=== PATIENT | female | born 1955 | race Caucasian/White ===

== ENCOUNTER 2016-06-09 17:17 | Inpatient (IN) | payer MEDICARE, MEDICAID ==
--- NOTE | 2016-06-09 17:18 | ED Physician Chart ---
Chief Complaint/HPI - Patient Information Date Seen:: 06/09/16 Time Seen:: 17:18 History of Present Illness:: 60-year-old female history of cirrhosis comes in with acute, constant, moderate to severe, aching, nonradiating, 8 out of 10, generalized abdominal pain that started about 45 minutes prior to arrival. Patient has associated nausea but no vomiting. Allergies:: Allergies Allergy/AdvReac Type Severity Reaction Status Date / Time MDX PCN (penicillin) Allergy Unknown Verified 08/08/12 18:12 [PCN (penicillin)] Historian:: Patient, EMS Review:: Nurse's Note Reviewed, EMS run form Reviewed Review of Systems - Review of Systems Other: Complete system review otherwise unremarkable except as noted in HPI. Past Medical History - Past Medical History Past Medical History: HTN, Other (cirrhosis, history of hepatitis C) Family History: None Social History: Non Smoker, No Alcohol, No Drug Use, Care Facility Surgical History: None Psychiatricy History: None Medication: Reviewed Family Medical History - Family Member Mother History Unknown: Yes Physical Exam - Physical Examination Other:: INITIAL VITAL SIGNS: Reviewed by me GENERAL: Alert and interactive. Appears to be in some pain. HEAD: Head is normocephalic and atraumatic EYES: EOMI. . No scleral icterus. No conjunctival injection ENT: Moist mucous membranes. NECK: Supple. No masses. Full range of motion RESPIRATORY: No tachypnea. Clear breath sounds bilaterally. No wheezing, rales, or rhonchi CV: Regular rate and rhythm. No murmurs, rubs, or gallops ABDOMEN: Distended, firm, tender to palpation. No guarding. No rebound. No masses. EXTREMITIES: No deformity. No cyanosis. No edema. SKIN: Warm and dry. No obvious rashes. NEUROLOGIC: Alert and oriented. Face is symmetric. Speech is normal. Moves all extremities equally. Motor and sensory distally intact. Labs/Radiology/EKG Results - Lab Results Results: Lab Results 06/09/16 06/09/16 06/09/16 Range/Units 17:33 17:33 17:33 WBC 21.6 H* D (4.8-10.8) Th/cmm RBC 3.91 (3.80-5.10) Mil/cmm Hgb 10.1 L D (11.7-15.5) gm/dL Hct 31.1 L D (35.0-45.0) % MCV 79.5 L (81-100) fl MCH 25.8 L (27.0-31.0) pg MCHC Differential 32.4 (28.0-36.0) pg RDW 14.6 (11.5-20.0) % Plt Count 450 H D (150-400) Th/cmm MPV 8.2 fl Band Neutrophils % 5 (0-10) % Neutrophils (Manual) 67 (40-80) % Lymphocytes 22 (20-50) % Monocytes 5 (2-10) % Basophils 1 (0-3) % Hypochromia 1+ Platelet Estimate INCREASED PLATELETS (NORMAL) Platelet Morphology NORMAL (NORMAL) Microcytosis 1+ RBC Morph Micro Appear ABNORMAL (NORMAL) Sodium 133 L (136-145) mEq/L Potassium 4.9 (3.5-5.1) mEq/L Chloride 102 (98-107) mEq/L Carbon Dioxide 21.5 (21.0-31.0) mEq/L Anion Gap 14.4 (7.0-16.0) BUN 38 H (7-25) mg/dL Creatinine 1.4 H (0.6-1.2) mg/dL Est GFR ( Amer) 49.5 (>90) ml/min Est GFR (Non-Af Amer) 40.9 ml/min BUN/Creatinine Ratio 27.1 Glucose 98 (70-105) mg/dL Whole Bld Lactic Acid (0.60-2.00) mmol/L Calcium 10.4 H (8.6-10.3) mg/dL Total Bilirubin 0.5 (0.3-1.0) mg/dL AST 41 H (13-39) U/L ALT 32 (7-52) U/L Alkaline Phosphatase 137 H (34-104) U/L Ammonia 50 (16-53) umol/L Total Protein 8.0 (6.0-8.3) gm/dL Albumin 4.2 (3.7-5.3) gm/dL Globulin 3.8 gm/dL Albumin/Globulin Ratio 1.1 (1.0-1.8) Amylase 101 (29-103) U/L Lipase 100 H (11-82) U/L 06/09/16 Range/Units 17:33 WBC (4.8-10.8) Th/cmm RBC (3.80-5.10) Mil/cmm Hgb (11.7-15.5) gm/dL Hct (35.0-45.0) % MCV (81-100) fl MCH (27.0-31.0) pg MCHC Differential (28.0-36.0) pg RDW (11.5-20.0) % Plt Count (150-400) Th/cmm MPV fl Band Neutrophils % (0-10) % Neutrophils (Manual) (40-80) % Lymphocytes (20-50) % Monocytes (2-10) % Basophils (0-3) % Hypochromia Platelet Estimate (NORMAL) Platelet Morphology (NORMAL) Microcytosis RBC Morph Micro Appear (NORMAL) Sodium (136-145) mEq/L Potassium (3.5-5.1) mEq/L Chloride (98-107) mEq/L Carbon Dioxide (21.0-31.0) mEq/L Anion Gap (7.0-16.0) BUN (7-25) mg/dL Creatinine (0.6-1.2) mg/dL Est GFR ( Amer) (>90) ml/min Est GFR (Non-Af Amer) ml/min BUN/Creatinine Ratio Glucose (70-105) mg/dL Whole Bld Lactic Acid 1.64 (0.60-2.00) mmol/L Calcium (8.6-10.3) mg/dL Total Bilirubin (0.3-1.0) mg/dL AST (13-39) U/L ALT (7-52) U/L Alkaline Phosphatase (34-104) U/L Ammonia (16-53) umol/L Total Protein (6.0-8.3) gm/dL Albumin (3.7-5.3) gm/dL Globulin gm/dL Albumin/Globulin Ratio (1.0-1.8) Amylase (29-103) U/L Lipase (11-82) U/L ED Septic Shock - . Is Septic Shock (SBP<90, OR Lactate>4 mmol\L) present?: No Reassessment (Disposition) - Reassessment Reassessment:: Patient has obstipation. She has underlying cirrhosis and typically uses lactulose daily however has not been taking her lactulose. CT confirms large amounts of stool in the abdomen. Most likely this is the source of her pain. She also has has leukocytosis. Discussed the case in detail with Dr. Castano who is her primary care physician he will also admit the patient for further workup and treatment under his service. Reassessment Condition:: Improved - Diagnosis Diagnosis:: Severe obstipation Abdominal pain Cirrhosis Anemia, microcytic Acute kidney injury - Patient Disposition Discharge/Transfer:: Acute Care w/in this hosp Admitted to:: Med/Surg Admitting Medical Physician:: Venkata Castano Time:: 19:20 Condition at Disposition:: Stable
[2016-06-09] MEDS ORDERED: Sodium Chloride 0.9% 1,000 ML IV ONE (17:23)
[2016-06-09] MEDS ORDERED: Morphine Sulfate 4 mg/mL 1mL Syr IVP ONE (17:23)
[2016-06-09] MEDS ORDERED: Prochlorperazine 5 mg/mL 2mL Vial IVP STA (17:33)
[2016-06-09 17:38] VITALS: BP 139/75
[2016-06-09] MEDS ORDERED: Morphine Sulfate 4 mg/mL 1mL Syr ONE (17:38)
[2016-06-09] MEDS ORDERED: Prochlorperazine 5 mg/mL 2mL Vial ONE (17:39)
[2016-06-09 18:07] LABS: MEAN CELL VOLUME 79.5 fl (81-100); MEAN CORPUSCULAR HEMOGLOBIN 25.8 pg (27.0-31.0); MEAN CORPUSCULAR HGB CONC 32.4 pg (28.0-36.0); MEAN PLATELET VOLUME 8.2 fl; RED BLOOD COUNT 3.91 Mil/cmm (3.80-5.10); RED CELL DISTRIBUTION WIDTH 14.6 % (11.5-20.0)
[2016-06-09 18:18] LABS: HEMATOCRIT 31.1 % (35.0-45.0); HEMOGLOBIN 10.1 gm/dL (11.7-15.5); PLATELET COUNT 450 Th/cmm (150-400); WHITE BLOOD COUNT 21.6 Th/cmm (4.8-10.8)
[2016-06-09 18:21] LABS: ALB/GLOB RATIO 1.1 (1.0-1.8); ANION GAP 14.4 (7.0-16.0); BILIRUBIN,TOTAL 0.5 mg/dL (0.3-1.0); BUN/CREATININE RATIO 27.1; CALCIUM SERUM 10.4 mg/dL (8.6-10.3); CARBON DIOXIDE 21.5 mEq/L (21.0-31.0); CREATININE - SERUM 1.4 mg/dL (0.6-1.2); POTASSIUM SERUM 4.9 mEq/L (3.5-5.1)
[2016-06-09] MEDS ORDERED: Ciprofloxacin 400mg Premix PB 400 MG/200 ML BAG IV ONE ×2 (18:23→19:19)
[2016-06-09] MEDS ORDERED: metroNIDAZOLE 500mg/NS 100mL 500 MG/100 ML BAG IV ONE ×2 (18:25→19:19)
[2016-06-09 18:43] LABS: BAND NEUTROPHILE 5 % (0-10); BASOPHIL 1 % (0-3); HYPOCHROMIA 1+; MICROCYTOSIS 1+; NEUTROPHILS 67 % (40-80); PLATELET ESTIMATE INCREASED PLATELETS (NORMAL); PLATELET MORPHOLOGY NORMAL (NORMAL); TOTAL CELLS COUNTED 100
[2016-06-09] MEDS: Hydrocodone/APAP 5mg/325mg Tab PO PRN (22:40)
[2016-06-10] MEDS ORDERED: Pneumococcal Vaccine 0.5 mL Vial IM ONE (01:52)
[2016-06-10] MEDS: metroNIDAZOLE 500mg/NS 100mL 500 MG/100 ML BAG IV SCH ×3 (04:11→21:21)
[2016-06-10] MEDS ORDERED: Non-Formulary Item 1 EA (Linaclotide [Linzess] 145 MCG) PO SCH (09:00)
[2016-06-10] MEDS ORDERED: Non-Formulary Item 1 EA (L.Acidoph,Paracasei, B.Lactis [Probiotic] 1 EACH) PO SCH (09:00)
[2016-06-10] MEDS ORDERED: Magnesium Citrate 1.75 GM/300 mL Bottle PO ONE (09:06)
[2016-06-10] MEDS: Pantoprazole 40 mg EC Tab PO SCH (09:55)
[2016-06-10] MEDS: Lactulose 10 Gm/15 mL 30mL UDC PO SCH ×2 (09:55→12:54)
[2016-06-10] MEDS: Multivitamin Tab PO SCH (09:55)
[2016-06-10] MEDS: Levofloxacin 500mg/100mL 500 MG/100 ML BAG IV SCH (10:42)
--- NOTE | 2016-06-10 10:45 | Diagnostic Imaging Report ---
History: Chest pain. Dyspnea. Comparison: 08/09/2012 Findings: Heart size is enlarged. Aorta is tortuous. There are no infiltrates or effusions. There are internal stabilization rods in the lumbar spine. Impression: No acute disease compared to old exam.
--- NOTE | 2016-06-10 14:23 | History & Physical ---
CHIEF COMPLAINT: Abdominal pain with serious constipation. HISTORY OF PRESENT ILLNESS: The patient is a 60-year-old female brought to Emergency Room and being admitted to the hospital with severe constipation associated with abdominal pain. PAST MEDICAL HISTORY: Significant for hypertension, coronary artery disease, cirrhosis of liver, history of hepatitis C, ____, arthritis, osteoporosis, irritable bowel syndrome. SOCIAL HISTORY: No history of smoking or alcohol abuse. FAMILY HISTORY: Not available. REVIEW OF SYSTEMS: The patient denies any diarrhea. The patient has severe constipation, some amount of abdominal pain, no nausea, no vomiting, no melena or hematochezia. PHYSICAL EXAMINATION: GENERAL: ____ female in obvious respiratory distress. VITAL SIGNS: Include a blood pressure ____/80, heart rate 80, respiration rate of 18. SKIN: Shows no cellulitis. HEENT: Normal conjunctivae. NECK: Supple. LUNGS: Clear. CARDIOVASCULAR: Heart sounds are present. ABDOMEN: Generalized tenderness, no guarding, no rigidity. Bowel sounds are good. EXTREMITIES: Show arthritis. NEUROLOGIC: The patient is awake. No focal motor deficit. LABORATORY DATA: Include sodium 133, potassium 4.9, chloride 102, bicarbonate 21.5, BUN 38, creatinine of 1.4, glucose of 98, ALT 41, AST of 32, lipase of 100. In view of the exam, the patient admitted with diagnosis of severe constipation, irritable bowel syndrome, hypertension, coronary artery disease, chronic kidney disease, cirrhosis of liver, hepatitis C, ____, arthritis, and anemia. TREATMENT AND PLAN: The patient admitted to Med/Surg. This patient is on [place], Lotensin, Lasix, lactulose, started Levaquin and Flagyl. ID consult, Dr. Sujit Castano. GI consult, Dr. Silva. JOB# [id number]
[2016-06-10] MEDS ORDERED: VTE Chemical Prophylaxis Screen/Admission MC PRN (15:00)
--- NOTE | 2016-06-10 16:24 | Infectious Disease Prog Note ---
Infectious Disease Subjective - Review of Systems Service Date: 06/10/16 Events since last encounter: cc diverticulituis hpi- pt urine and ct results pending ros no fever o/e vss chest claer abd tender ext paraparesis dx uti diverticulitis plan levaquin flagyl lactulose Infectious Disease Objective - Results Result Diagrams: 06/09/16 17:33 06/09/16 17:33 Recent Labs: Laboratory Last Values WBC 21.6 Th/cmm (4.8-10.8) H* D 06/09/16 17:33 RBC 3.91 Mil/cmm (3.80-5.10) 06/09/16 17:33 Hgb 10.1 gm/dL (11.7-15.5) L D 06/09/16 17: Hct 31.1 % (35.0-45.0) L D 06/09/16 17:33 MCV 79.5 fl (81-100) L 06/09/16 17:33 MCH 25.8 pg (27.0-31.0) L 06/09/16 17:33 MCHC Differential 32.4 pg (28.0-36.0) 06/09/16 17:33 RDW 14.6 % (11.5-20.0) 06/09/16 17:33 Plt Count 450 Th/cmm (150-400) H D 06/09/16 17:33 MPV 8.2 fl 06/09/16 17:33 Band Neutrophils % 5 % (0-10) 06/09/16 17:33 Neutrophils (Manual) 67 % (40-80) 06/09/16 17:33 Lymphocytes 22 % (20-50) 06/09/16 17:33 Monocytes 5 % (2-10) 06/09/16 17:33 Basophils 1 % (0-3) 06/09/16 17:33 Hypochromia 1+ 06/09/16 17:33 Platelet Estimate INCREASED PLATELETS (NORMAL) 06/09/16 17:33 Platelet Morphology NORMAL (NORMAL) 06/09/16 17:33 Microcytosis 1+ 06/09/16 17:33 RBC Morph Micro Appear ABNORMAL (NORMAL) 06/09/16 17:33 Sodium 133 mEq/L (136-145) L 06/09/16 17:33 Potassium 4.9 mEq/L (3.5-5.1) 06/09/16 17:33 Chloride 102 mEq/L (98-107) 06/09/16 17:33 Carbon Dioxide 21.5 mEq/L (21.0-31.0) 06/09/16 17:33 Anion Gap 14.4 (7.0-16.0) 06/09/16 17:33 BUN 38 mg/dL (7-25) H 06/09/16 17:33 Creatinine 1.4 mg/dL (0.6-1.2) H 06/09/16 17:33 Est GFR ( Amer) 49.5 ml/min (>90) 06/09/16 17:33 Est GFR (Non-Af Amer) 40.9 ml/min 06/09/16 17:33 BUN/Creatinine Ratio 27.1 06/09/16 17:33 Glucose 98 mg/dL (70-105) 06/09/16 17:33 Whole Bld Lactic Acid 1.64 mmol/L (0.60-2.00) 06/09/16 17:33 Calcium 10.4 mg/dL (8.6-10.3) H 06/09/16 17:33 Total Bilirubin 0.5 mg/dL (0.3-1.0) 06/09/16 17:33 AST 41 U/L (13-39) H 06/09/16 17:33 ALT 32 U/L (7-52) 06/09/16 17:33 Alkaline Phosphatase 137 U/L (34-104) H 06/09/16 17:33 Ammonia 50 umol/L (16-53) 06/09/16 17:33 Total Protein 8.0 gm/dL (6.0-8.3) 06/09/16 17:33 Albumin 4.2 gm/dL (3.7-5.3) 06/09/16 17:33 Globulin 3.8 gm/dL 06/09/16 17:33 Albumin/Globulin Ratio 1.1 (1.0-1.8) 06/09/16 17:33 Amylase 101 U/L (29-103) 06/09/16 17:33 Lipase 100 U/L (11-82) H 06/09/16 17:33 - Physical Exam Vitals and I&O: Vital Signs Temp 98.7 F 06/10/16 16:00 Pulse 78 06/10/16 16:00 Resp 17 06/10/16 16:00 BP 119/54 06/10/16 16:00 Pulse Ox 96 06/10/16 16:00 Intake & Output 06/09/16 06/10/16 06/10/16 18:59 06:59 18:59 Intake Total 100 Balance 100 Intake: Intake, IV Amount 100 metroNIDAZOLE 500mg/NS 100 100mL 500 mg In 100 ml @ 100 mls/hr IV Q8HR PENDING SALE TO [facility] Rx #:[id number] Other: # Voids 2 Active Medications: Current Medications Acetaminophen/Hydrocodone Bitart ([place] 5mg/325mg) 1 tab PO Q4H PRN PRN Reason: Pain (Moderate) Stop: 08/08/16 22:26 Last Admin: 06/09/16 22:40 Dose: 1 tab Benazepril HCl (Lotensin) 10 mg PO DAILY PENDING SALE TO [facility] Stop: 08/09/16 08:59 Last Admin: 06/10/16 09:59 Dose: 10 mg Furosemide (Lasix) 20 mg PO DAILY PENDING SALE TO [facility] Stop: 08/09/16 08:59 Last Admin: 06/10/16 10:00 Dose: 20 mg Heparin Sodium (Porcine) (Heparin) 5,000 units SUBQ Q12HR PENDING SALE TO [facility] Stop: 08/09/16 08:59 Last Admin: 06/10/16 09:55 Dose: 5,000 units Heparin Sodium (Porcine) (Heparin) 5,000 units SUBQ Q12HR PENDING SALE TO [facility] Stop: 08/09/16 20:59 Levofloxacin (Levaquin Pb) 500 mg in 100 mls @ 100 mls/hr IV Q24HR PENDING SALE TO [facility] Stop: 08/09/16 08:59 Last Admin: 06/10/16 10:42 Dose: 100 mls/hr Metronidazole (Flagyl) 500 mg in 100 mls @ 100 mls/hr IV Q8HR PENDING SALE TO [facility] Stop: 08/09/16 04:59 Last Admin: 06/10/16 13:39 Dose: 100 mls/hr Lactulose (Cephulac) 20 gm PO DAILY PENDING SALE TO [facility] Stop: 08/09/16 08:59 Last Admin: 06/10/16 12:54 Dose: 20 gm Mineral Oil (Mineral Oil 30 Ml) 30 ml PO DAILY PRN PRN Reason: Constipation Stop: 08/09/16 09:07 Miscellaneous (Vte Chemical Prophylaxis Screen/ Admission) 1 ea [facility] PRN PRN PRN Reason: PROTOCOL Stop: 08/09/16 14:59 Multivitamins/Vitamin C (Theragran) 1 tab PO DAILY BEST Stop: 08/09/16 08:59 Last Admin: 06/10/16 09:55 Dose: 1 tab Ondansetron HCl (Zofran) 4 mg IV Q6H PRN PRN Reason: Nausea / Vomiting Stop: 08/08/16 22:28 Last Admin: 06/10/16 15:30 Dose: 4 mg Pantoprazole Sodium (Protonix) 40 mg PO DAILY BEST Stop: 08/09/16 08:59 Last Admin: 06/10/16 09:55 Dose: 40 mg General: no acute distress HEENT: atraumatic Neck: supple Cardiovascular: S1S2 Lungs: clear to auscultation bilaterally Abdomen: tender Skin: rash Infectious Disease Assmt/Plan - Problem List Patient Problems: All Active Problems LOWER ABDOMINAL PAIN AFTER STRAINING (Acute)
[2016-06-10] MEDS: Hydrocodone/APAP 5mg/325mg Tab PO PRN (17:36)
--- NOTE | 2016-06-10 18:43 | Admit Criteria Form ---
Admit Criteria Forms - Admit Criteria Diagnosis: ABDOMINAL PAIN Clinical Indications for Admission to Inpatient Care (Place 'X' for any and all applicable criteria): Admission is indicated for ANY ONE of the following(1)(2)(3)(4)(5): [X ]I. Inpatient admission required rather than observation care (Also use Abdominal Pain: Observation Care, as appropriate) because of ANY ONE of the following: [ ]a) Severe pain requiring acute inpatient management [ ]b) Identification of etiology/finding that requires inpatient care (eg, aortic dissection, free air) [ ]c) Absent bowel sounds with complete ileus(6) [ ]d) Suspected toxic megacolon [ ]e) Severe electrolyte abnormalities requiring inpatient care [ ]f) High fever or infection requiring inpatient admission as indicated by ANY ONE of following(7)(8): [ ] i) Appropriate outpatient or observational care antimicrobial treatment unavailable, not effective, or not feasible [ ] ii) Documented bacteremia [ ] iii) Temperature > 104.9 degrees F (oral) [ ] iv) T >103.1 F (oral) or < 96.8 F(rectal) that does not respond to all emergency treatment measures [ ]g) Signs of intestinal obstruction [B] [ ]h) Hemodynamic instability [ ]i) IV fluid to replace significant ongoing losses (greater than 3 L/m2 per day) (12)(13) [ ]j) Percutaneous or open drainage (eg, abscess, biliary tract ) procedures [ ]k) Parenteral nutrition regimen that must be implemented on inpatient basis [X ]l) Other condition,treatment or monitoring requiring inpatient admission. [ ]II. Peritoneal signs present [ ]III. Surgery needed that cannot be performed on an ambulatory basis. [ ]IV. Evaluation requires patient to not eat or drink for extended period ( eg, more than 24 hours). [ ]V. Contraindications and/or Inappropriate clinical situations for Observational Care in patients with abdominal pain, when ANY ONE of the following is required: [ ]a) Thorough evaluation is required to prevent catastrophic events due to delays in diagnosing (e.g.Mesenteric ischemia) 1,3 [ ]b) Patient with severe pathology or with chronic symptoms unlikely to improve in the ED stay (3) [ ]. General contraindications and/or Inappropriate clinical situations for Observational Care in patients with abdominal pain, when ANY ONE of the following is required: [ ]a) Prediction of prolongation of LOS based on ANY ONE of the following may be considered as a contraindication for observational care 2, 3, 4, 5, 6, 7, 8, 9, 10, 11 [ ]i) Age > 65 yrs. [ ]ii) Patient arriving by ambulance [ ]iii) Patient with high acuity [ ]iv) Patient requiring vital sign monitoring [ ]v) Patient on IV medication [ ]b) Systolic blood pressures 180mmHg 3,12 [ ]c) Patient with altered mental status including delirium and other alteration of consciousness, (3) [ ]d) Patient whose discharge disposition will be to a prison home or rehabilitation home should not be managed in Emergency Department Observation Unit. CMS rule requires 3 days hospital stay before such placement.3,13 [ ]e) Patient with failure to thrive due to broad array of etiologies 3,16,17 [ ]f) Inability to ambulate 3,14 Extended stay beyond goal length of stay may be needed for(2)(3): [ ]a) Persistent abdominal pain with suspected intra-abdominal process [ ]b) Diagnosed condition requiring continued stay (e.g., pancreatitis, complicated diverticulitis) [ ]c) Surgery (e.g., colectomy) The original [facility] content created by [employer] has been revised. The portions of the content which have been revised are identified through the use of italic text or in bold, and [facility] [employer] has neither reviewed nor approved the modified material.All other unmodified content is copyright [facility] [employer]. Please see references footnoted in the original [facility] edition 2016 Admit Criteria Met?: Yes
--- NOTE | 2016-06-11 00:59 | Consultation ---
REASON FOR CONSULTATION: Abdominal pain, abdominal distention. HISTORY OF PRESENT ILLNESS: This consult was obtained through the request of Dr. Venkata Castano for this 60-year-old with history of cirrhosis of the liver, hypertension, obesity, presenting to the hospital because of abdominal pain. Apparently, the patient has been having problems, that has been for a [id number]-a-half. She has history of cirrhosis. She was here a couple months ago. The patient has been having problem with going to the bathroom with constipation. She had occasional blood in the stools. She had EGD and colon a year and a few months ago. REVIEW OF SYSTEMS: Denies any weight loss. No hematemesis. PAST MEDICAL HISTORY: Hypertension, obesity, hepatitis C that was treated and cirrhosis of the liver. PAST SURGICAL HISTORY: She claims she had 7 back surgeries, 2 neck surgeries, 4 carpal tunnel surgeries. She had appendectomy, hysterectomy and attempted cholecystectomy. SOCIAL HISTORY: Smokes few cigarettes a day, nonalcoholic, ex-drug abuser. FAMILY HISTORY: Noncontributory. ALLERGIES: PENICILLIN, VITAMIN E. MEDICATIONS: The patient is on [place], Lotensin, Lasix, subcu heparin, lactulose, levofloxacin, Flagyl, multivitamin, Zofran, Protonix. REVIEW OF SYSTEMS: Again, no weight loss, no hematemesis, no melena. She has constipation and she has leg swelling and leg pain. PHYSICAL EXAMINATION: GENERAL: The patient is awake, oriented to self, place, and time, in no acute distress. VITAL SIGNS: Blood pressure is 86/56, heart rate 75, respiratory rate 17, temperature is 98.0. HEAD AND NECK: Pupils reactive to light and accommodation. Extraocular muscles intact. Sclerae are anicteric. Conjunctivae not pale. Oral cavity, no lesion. NECK: Supple, no jugular venous distention, no carotid bruit or lymph node. CHEST: Good respiratory movements. LUNGS: Clear to auscultation. CARDIOVASCULAR: Regular rate and rhythm. No murmur or gallop. ABDOMEN: Obese, distended, diffusely tender. Bowel sounds present. EXTREMITIES: Lower extremities, no edema, no cellulitis. CENTRAL NERVOUS SYSTEM: No asterixis. LABORATORY DATA: Lipase was 100, AST, ALT was 41 and 32, alkaline phosphatase is 137, bilirubin 0.5, ammonia was 50. White count 21.6, H and H of 10.1 and 31.1 with platelets of 450. CT scan was done which did not show any acute changes. Some residual contrast in the colon and degenerative joint disease of the spine. IMPRESSION: A 60-year-old with abdominal pain. ASSESSMENT AND PLAN: 1.Abdominal pain, most probably constipation. So, at this time, we will give the patient a bottle magnesium citrate. We will try mineral oil on a daily basis and depending on the results, may check another KUB or might check an ultrasound, but it seems this is time it is mostly related to constipation. 2.Decompensated cirrhosis. The patient at this time seems to be stable. Her platelets does not go with cirrhosis. Her albumin also was high, so she has to be compensated. At this time, she should have alpha fetoprotein and ultrasound every 6 months. 3.History of hepatic encephalopathy. Ammonia is normal. The patient is not encephalopathic. We will monitor her clinically. Other medical problems such as leukocytosis, cellulitis, hypertension, degenerative joint disease, etc. as per Dr. Venkata Castano. Thank you, Dr. Venkata Castano for allowing me to participate in the care of this patient. If you have any further questions, please let me know. JOB# [id number]
--- NOTE | 2016-06-11 01:27 | Consultation ---
PRIMARY CARE PHYSICIAN: Dr. Hawley. HISTORY OF PRESENT ILLNESS: This is a 60-year-old female who was brought to the Emergency with complaint of constipation and abdominal pain localized to the left side without any fever. The patient was supposed to take laxatives; however, she stopped and she decided to come to the Emergency Room where the patient was evaluated, admission orders are given and discussed with Dr. Hawley. PAST MEDICAL HISTORY: Liver cirrhosis secondary to hepatitis C, spine surgery, paraparesis, recurrent cellulitis of the legs. FAMILY HISTORY: Negative. REVIEW OF SYSTEMS: A 14-point review of systems was negative except above. PHYSICAL EXAMINATION: GENERAL: The patient is a well-nourished female. VITAL SIGNS: Temperature 98, pulse 64, respirations 18, blood pressure 98/47. HEENT: Mild pallor. No icterus. Pupils are reactive. NECK: Supple. No JVD. LUNGS: Breath sounds bilateral vesicular, decreased all over. CARDIOVASCULAR: S1, S2. ABDOMEN: Soft, bowel sounds present. Generalized tenderness. LYMPH NODES: No thyroid, no cervical lymph nodes. Chest x-ray: No infiltrates. LABORATORY DATA: White count 21,000; hemoglobin is 10 g; platelets 450. CT abdomen and pelvis done, pending results. DIAGNOSES: Diverticulitis, constipation. PLAN: The patient is started on laxatives, Levaquin, Flagyl, pain control with [place]. Rest of the care as ordered in CPOE. Medical reconciliation done. Thank you, Dr. Hawley, for this consultation. JOB# [id number]
[2016-06-11] MEDS: Hydrocodone/APAP 5mg/325mg Tab PO PRN ×3 (02:59→22:26)
[2016-06-11] MEDS: metroNIDAZOLE 500mg/NS 100mL 500 MG/100 ML BAG IV SCH ×3 (04:20→20:27)
[2016-06-11 07:43] LABS: ALB/GLOB RATIO 1.1 (1.0-1.8); ALKALINE PHOSPHATASE 116 U/L (34-104); ANION GAP 9.3 (7.0-16.0); BILIRUBIN,TOTAL 0.5 mg/dL (0.3-1.0); BUN - UREA NITROGEN 35 mg/dL (7-25); CALCIUM SERUM 8.7 mg/dL (8.6-10.3); CARBON DIOXIDE 21.7 mEq/L (21.0-31.0); CHLORIDE 108 mEq/L (98-107); CREATININE - SERUM 0.7 mg/dL (0.6-1.2); GLUCOSE 134 mg/dL (70-105); LIPASE 29 U/L (11-82); SGOT 31 U/L (13-39); SGPT/ALT 21 U/L (7-52); SODIUM SERUM 135 mEq/L (136-145)
[2016-06-11] MEDS: Multivitamin Tab PO SCH (08:18)
[2016-06-11] MEDS: Pantoprazole 40 mg EC Tab PO SCH (08:18)
[2016-06-11] MEDS: Lactulose 10 Gm/15 mL 30mL UDC PO SCH ×2 (08:19→09:00)
[2016-06-11] MEDS: Levofloxacin 500mg/100mL 500 MG/100 ML BAG IV SCH (08:33)
[2016-06-11 09:03] LABS: HEMOGLOBIN 9.1 gm/dL (11.7-15.5); RED BLOOD COUNT 3.38 Mil/cmm (3.80-5.10); WHITE BLOOD COUNT 56.1 Th/cmm (4.8-10.8)
[2016-06-11 09:04] LABS: MEAN CELL VOLUME 80.1 fl (81-100); MEAN CORPUSCULAR HEMOGLOBIN 27.1 pg (27.0-31.0); MEAN CORPUSCULAR HGB CONC 33.8 pg (28.0-36.0); MEAN PLATELET VOLUME 8.5 fl; PLATELET COUNT 365 Th/cmm (150-400); RED CELL DISTRIBUTION WIDTH 15.3 % (11.5-20.0)
[2016-06-11 11:05] LABS: TOTAL CELLS COUNTED 100
[2016-06-11 11:06] LABS: BAND NEUTROPHILE 7 % (0-10); EOSINOPHIL 0 % (0-5); NEUTROPHILS 89 % (40-80); PLATELET ESTIMATE ADEQUATE (NORMAL); PLATELET MORPHOLOGY NORMAL (NORMAL)
[2016-06-11 11:07] LABS: ANISOCYTOSIS 1+; MICROCYTOSIS 1+
[2016-06-11] MEDS ORDERED: Vancomycin HCl 1.5 GM in Sodium Chloride 0.9% 500 ML IV ONE (13:00)
[2016-06-11] MEDS ORDERED: Meropenem 1 GM in Sodium Chloride 0.9% 100 ML IV SCH (13:00)
[2016-06-11] MEDS ORDERED: Meropenem 1 gm in NS 0.9% 100 ML IV SCH (15:00)
--- NOTE | 2016-06-11 16:16 | Infectious Disease Prog Note ---
Infectious Disease Subjective - Review of Systems Service Date: 06/11/16 Events since last encounter: cc diverticulitis hpi- pt on iv bax wbc increased ct result gi eval pending onc consult called ros no fever o/e vss chets abd tender ext paraplegia dx coirrhosis/ constipation plan merrem flagyl vanco mycin Infectious Disease Objective - Results Result Diagrams: 06/11/16 06:44 06/11/16 06:44 Recent Labs: Laboratory Last Values WBC 56.1 Th/cmm (4.8-10.8) H* D 06/11/16 06:44 RBC 3.38 Mil/cmm (3.80-5.10) L 06/11/16 06:44 Hgb 9.1 gm/dL (11.7-15.5) L 06/11/16 06:44 Hct 27.0 % (35.0-45.0) L D 06/11/16 06:44 MCV 80.1 fl (81-100) L 06/11/16 06:44 MCH 27.1 pg (27.0-31.0) 06/11/16 06:44 MCHC Differential 33.8 pg (28.0-36.0) 06/11/16 06:44 RDW 15.3 % (11.5-20.0) 06/11/16 06:44 Plt Count 365 Th/cmm (150-400) 06/11/16 06:44 MPV 8.5 fl 06/11/16 06:44 Band Neutrophils % 7 % (0-10) 06/11/16 06:44 Neutrophils (Manual) 89 % (40-80) H 06/11/16 06:44 Lymphocytes 3 % (20-50) L 06/11/16 06:44 Monocytes 1 % (2-10) L 06/11/16 06:44 Eosinophils 0 % (0-5) 06/11/16 06:44 Basophils 1 % (0-3) 06/09/16 17:33 Hypochromia 1+ 06/09/16 17:33 Platelet Estimate ADEQUATE (NORMAL) 06/11/16 06:44 Platelet Morphology NORMAL (NORMAL) 06/11/16 06:44 Anisocytosis 1+ 06/11/16 06:44 Microcytosis 1+ 06/11/16 06:44 RBC Morph Micro Appear NORMAL (NORMAL) 06/11/16 06:44 Smear Path Review 06/11/16 06:44 Sodium 135 mEq/L (136-145) L 06/11/16 06:44 Potassium 4.0 mEq/L (3.5-5.1) 06/11/16 06:44 Chloride 108 mEq/L (98-107) H 06/11/16 06:44 Carbon Dioxide 21.7 mEq/L (21.0-31.0) 06/11/16 06:44 Anion Gap 9.3 (7.0-16.0) 06/11/16 06:44 BUN 35 mg/dL (7-25) H 06/11/16 06:44 Creatinine 0.7 mg/dL (0.6-1.2) 06/11/16 06:44 Est GFR ( Amer) > 60.0 ml/min (>90) 06/11/16 06:44 Est GFR (Non-Af Amer) > 60.0 ml/min 06/11/16 06:44 BUN/Creatinine Ratio 50.0 06/11/16 06:44 Glucose 134 mg/dL (70-105) H 06/11/16 06:44 Whole Bld Lactic Acid 1.64 mmol/L (0.60-2.00) 06/09/16 17:33 Calcium 8.7 mg/dL (8.6-10.3) 06/11/16 06:44 Total Bilirubin 0.5 mg/dL (0.3-1.0) 06/11/16 06:44 AST 31 U/L (13-39) 06/11/16 06:44 ALT 21 U/L (7-52) 06/11/16 06:44 Alkaline Phosphatase 116 U/L (34-104) H 06/11/16 06:44 Ammonia 50 umol/L (16-53) 06/09/16 17:33 Total Protein 6.0 gm/dL (6.0-8.3) 06/11/16 06:44 Albumin 3.1 gm/dL (3.7-5.3) L 06/11/16 06:44 Globulin 2.9 gm/dL 06/11/16 06:44 Albumin/Globulin Ratio 1.1 (1.0-1.8) 01/30/17 06:44 Amylase 101 U/L (29-103) 06/09/16 17:33 Lipase 29 U/L (11-82) 06/11/16 06:44 - Physical Exam Vitals and I&O: Vital Signs Temp 98.0 F 06/11/16 15:40 Pulse 71 06/11/16 15:40 Resp 18 06/11/16 15:40 BP 121/71 06/11/16 15:40 Pulse Ox 98 06/11/16 15:40 Intake & Output 06/10/16 06/11/16 06/11/16 18:59 06:59 18:59 Intake Total 1900 500 200 Output Total 250 Balance 1650 500 200 Intake: Intake, IV Amount 200 200 200 Levofloxacin 500mg/100mL 100 100 500 mg In 100 ml @ 100 mls/hr IV Q24HR [facility] Rx#: [id number] metroNIDAZOLE 500mg/NS 100 200 100 100mL 500 mg In 100 ml @ 100 mls/hr IV Q8HR [facility] Rx #:[id number] Oral 1500 300 Other 200 Output: Emesis 250 Other: # Voids 3 3 # Bowel Movements 3 1 Active Medications: Current Medications Acetaminophen/Hydrocodone Bitart ([place] 5mg/325mg) 1 tab PO Q4H PRN PRN Reason: Pain (Moderate) Stop: 08/08/16 22:26 Last Admin: 06/11/16 16:07 Dose: 1 tab Benazepril HCl (Lotensin) 10 mg PO DAILY [facility] Stop: 08/09/16 08:59 Last Admin: 06/11/16 08:19 Dose: Not Given Furosemide (Lasix) 20 mg PO DAILY [facility] Stop: 08/09/16 08:59 Last Admin: 06/11/16 08:19 Dose: Not Given Heparin Sodium (Porcine) (Heparin) 5,000 units SUBQ Q12HR [facility] Stop: 08/09/16 08:59 Last Admin: 06/11/16 08:18 Dose: 5,000 units Heparin Sodium (Porcine) (Heparin) 5,000 units SUBQ Q12HR [facility] Stop: 08/09/16 20:59 Metronidazole (Flagyl) 500 mg in 100 mls @ 100 mls/hr IV Q8HR [facility] Stop: 08/09/16 04:59 Last Infusion: 06/11/16 13:50 Dose: Infused Vancomycin HCl 1.5 gm/ Sodium (Chloride) 500 mls @ 250 mls/hr IV Q12H [facility] Stop: 08/10/16 21:59 Meropenem 1 gm/ Sodium (Chloride) 100 mls @ 100 mls/hr IV Q8H [facility] Stop: 08/10/16 15:59 Lactulose (Cephulac) 20 gm PO DAILY [facility] Stop: 08/09/16 08:59 Last Admin: 06/11/16 08:19 Dose: 20 gm Mineral Oil (Mineral Oil 30 Ml) 30 ml PO DAILY PRN PRN Reason: Constipation Stop: 08/09/16 09:07 Miscellaneous (Vte Chemical Prophylaxis Screen/ Admission) 1 [facility] PRN PRN PRN Reason: PROTOCOL Stop: 08/09/16 14:59 Miscellaneous (Vancomycin Iv Per Pharmacy) 1 [facility] PRN [facility] Stop: 08/10/16 12:14 Multivitamins/Vitamin C (Theragran) 1 tab PO DAILY [facility] Stop: 08/09/16 08:59 Last Admin: 06/11/16 08:18 Dose: 1 tab Ondansetron HCl (Zofran) 4 mg IV Q6H PRN PRN Reason: Nausea / Vomiting Stop: 08/08/16 22:28 Last Admin: 06/11/16 08:18 Dose: 4 mg Pantoprazole Sodium (Protonix) 40 mg PO DAILY [facility] Stop: 08/09/16 08:59 Last Admin: 06/11/16 08:18 Dose: 40 mg Polyethylene Glycol (Miralax) 17 gm PO DAILY [facility] Stop: 08/11/16 08:59 Rifaximin (Xifaxan) 600 mg PO BID [facility] Stop: 08/10/16 16:59 Last Admin: 06/11/16 16:02 Dose: 600 mg Infectious Disease Assmt/Plan - Problem List Patient Problems: All Active Problems LOWER ABDOMINAL PAIN AFTER STRAINING (Acute)
--- NOTE | 2016-06-11 16:35 | Diagnostic Imaging Report ---
KUB abdominal film HISTORY: Pain There is a nonspecific gas pattern. A mildly dilated loop of large bowel noted. No free intraperitoneal air. Surgical and severe degenerative changes noted within the lumbar spine. Orthopedic hardware traverses the intertrochanteric region of the left femur. IMPRESSION: 1. Nonspecific bowel gas pattern
[2016-06-11] MEDS: Meropenem 1 gm in NS 0.9% 100 ML IV SCH (17:03)
[2016-06-11] MEDS: Vancomycin HCl 1.5 GM in Sodium Chloride 0.9% 500 ML IV SCH (23:24)
[2016-06-12] MEDS: Hydrocodone/APAP 5mg/325mg Tab PO PRN ×5 (03:04→20:25)
[2016-06-12] MEDS: Meropenem 1 gm in NS 0.9% 100 ML IV SCH ×3 (03:31→17:05)
[2016-06-12] MEDS: metroNIDAZOLE 500mg/NS 100mL 500 MG/100 ML BAG IV SCH ×3 (06:31→20:25)
[2016-06-12] MEDS: Multivitamin Tab PO SCH (09:20)
[2016-06-12] MEDS: Pantoprazole 40 mg EC Tab PO SCH (09:20)
[2016-06-12] MEDS: POLYETHYLENE GLYCOL 3350 17 GM PACK PO SCH (09:20)
[2016-06-12] MEDS: Lactulose 10 Gm/15 mL 30mL UDC PO SCH (09:35)
[2016-06-12 10:23] LABS: HEMATOCRIT 26.1 % (35.0-45.0); HEMOGLOBIN 8.6 gm/dL (11.7-15.5); MEAN CORPUSCULAR HEMOGLOBIN 26.1 pg (27.0-31.0); MEAN PLATELET VOLUME 9.1 fl; PLATELET COUNT 375 Th/cmm (150-400); RED CELL DISTRIBUTION WIDTH 15.3 % (11.5-20.0)
[2016-06-12 10:34] LABS: WHITE BLOOD COUNT 29.4 Th/cmm (4.8-10.8)
[2016-06-12] MEDS: Vancomycin HCl 1.5 GM in Sodium Chloride 0.9% 500 ML IV SCH ×2 (10:34→11:35)
[2016-06-12 11:05] LABS: BAND NEUTROPHILE 6 % (0-10); METAMYELOCYTE 2 % (0-0); NEUTROPHILS 80 % (40-80); TOTAL CELLS COUNTED 100
[2016-06-12 11:06] LABS: PLATELET ESTIMATE ADEQUATE (NORMAL); PLATELET MORPHOLOGY NORMAL (NORMAL)
--- NOTE | 2016-06-12 11:43 | Diagnostic Imaging Report ---
INDICATION: Pain Technique: Serial axial images were performed through the abdomen and pelvis and then reformatted in the coronal plane. CTDI is 12.6mGy. [id number] FINDINGS: Lung bases clear. Liver and spleen are normal in size without focal mass. No renal masses stones or hydronephrosis. No masses or enlargement of the adrenal glands or pancreas. No biliary dilatation. Gallbladder contains no stones. Mild distention of small bowel loops. Appendix is normal. Within the pelvis bladder is smooth walled without stones. No abnormal masses or fluid collections. Extensive orthopedic hardware in the lumbar spine. There is also orthopedic hardware in the left hip joint. IMPRESSION: No acute disease in the abdomen or pelvis.
[2016-06-12 12:47] LABS: URINE BILIRUBIN NEGATIVE (NEGATIVE); URINE BLOOD NEGATIVE (NEGATIVE); URINE COLOR BROWN; URINE GLUCOSE (UA) NEGATIVE (NEGATIVE); URINE KETONE NEGATIVE (NEGATIVE); URINE PROTEIN NEGATIVE (NEGATIVE); URINE UROBILINOGEN 0.2 E.U./dL (0.2 - 1.0)
[2016-06-12 12:50] LABS: URINE BACTERIA NONE SEEN /hpf (NONE SEEN); URINE EPITHELIAL CELLS FEW /lpf (FEW); URINE RBC 0-1 /hpf (0-5); URINE WBC NONE SEEN /hpf (0-5)
[2016-06-13] MEDS: Hydrocodone/APAP 5mg/325mg Tab PO PRN ×5 (00:23→22:01)
[2016-06-13] MEDS: Meropenem 1 gm in NS 0.9% 100 ML IV SCH ×3 (02:38→17:32)
[2016-06-13] MEDS: metroNIDAZOLE 500mg/NS 100mL 500 MG/100 ML BAG IV SCH ×3 (05:07→22:00)
--- NOTE | 2016-06-13 07:51 | Consultation ---
HISTORY OF PRESENT ILLNESS: The patient is a 60-year-old female with history of cirrhosis of liver, hepatitis C, hypertension, and obesity. She has had EGD and colonoscopy in the past by Dr. Silva. FAMILY HISTORY: Unremarkable. PAST MEDICAL HISTORY: Hypertension, obesity, hepatitis C that has been treated, and cirrhosis of liver. PAST SURGICAL HISTORY: Multiple surgeries including orthopedic surgeries, appendectomy, and hysterectomy. SOCIAL HISTORY: Smokes a few cigarettes a day, does not drink, ex-drug abuser. REVIEW OF SYSTEMS: No new HEENT, cardiorespiratory, GI, , skin, hematologic, lymphatic, or endocrine symptoms. She has constipation and leg swelling. PHYSICAL EXAMINATION: VITAL SIGNS: Blood pressure is 86/56, heart rate 78, respirations 18, and blood pressure 98. HEENT: Normocephalic and atraumatic. Conjunctivae pale. Sclerae are anicteric. Nose and throat not congested. NECK: Supple. No jugular venous distention. LUNGS: Scattered rhonchi. CARDIOVASCULAR: S1 and S2 normal. ABDOMEN: Soft, distended, and obese. EXTREMITIES: No cyanosis, clubbing, or edema. CENTRAL NERVOUS SYSTEM: No asterixis. LABORATORY DATA: White cell count is 29.4, hemoglobin is 8.6, and platelet count is 375,000. Sodium is 135, BUN 35, creatinine 0.7, glucose 134, and alkaline phosphatase is 116. ASSESSMENT: The patient with history of hepatitis C that was treated, cirrhosis of liver, history of arthritis, osteoporosis, coronary artery disease, hypertension, irritable bowel syndrome, and chronic pain. PLAN: We will monitor the patient with you as needed. Thank you for asking me to see the patient in consultation. JOB# [id number] PADMINI
[2016-06-13] MEDS: Multivitamin Tab PO SCH (10:08)
[2016-06-13] MEDS: Pantoprazole 40 mg EC Tab PO SCH (10:08)
[2016-06-13] MEDS: Lactulose 10 Gm/15 mL 30mL UDC PO SCH (10:08)
[2016-06-13] MEDS: POLYETHYLENE GLYCOL 3350 17 GM PACK PO SCH (10:08)
--- NOTE | 2016-06-13 12:36 | Diagnostic Imaging Report ---
Ultrasound abdomen HISTORY: Cirrhosis COMPARISON: CT abdomen and pelvis on 06/09/2016 Technique: Sonography of the abdomen was performed in multiple planes. FINDINGS: Exam is limited due to bowel gas. The liver measures 17.5 cm. The liver demonstrates normal echogenicity with slightly irregular borders. The liver margins are not well-defined, however, no obvious focal lesions identified. No evidence of gallstones. The gallbladder wall measures 3 mm. The common bile duct measures 6 mm. Assessment of the pancreas is limited due to bowel gas. The right kidney measures 12.2 cm. The left kidney measures 10.7 cm. No evidence of focal lesions or hydronephrosis. The spleen measures 9.4 cm. Assessment of the abdominal aorta was limited due to bowel gas. IMPRESSION: Limited exam due to bowel gas. Mild hepatomegaly with slight irregularity of the hepatic borders which may reflect underlying hepatocellular disease. Please correlate with clinical findings and liver function tests. No evidence of gallstones. Borderline prominent gallbladder wall, nonspecific. No evidence of hydronephrosis.
[2016-06-13 13:52] LABS: ALB/GLOB RATIO 0.9 (1.0-1.8); ALKALINE PHOSPHATASE 83 U/L (34-104); ANION GAP 7.7 (7.0-16.0); BILIRUBIN,TOTAL 0.4 mg/dL (0.3-1.0); BUN - UREA NITROGEN 13 mg/dL (7-25); CALCIUM SERUM 8.3 mg/dL (8.6-10.3); CARBON DIOXIDE 24.2 mEq/L (21.0-31.0); CHLORIDE 109 mEq/L (98-107); CREATININE - SERUM 0.5 mg/dL (0.6-1.2); GLUCOSE 100 mg/dL (70-105); POTASSIUM SERUM 3.9 mEq/L (3.5-5.1); SGOT 14 U/L (13-39); SGPT/ALT 12 U/L (7-52); SODIUM SERUM 137 mEq/L (136-145)
--- NOTE | 2016-06-13 16:12 | General Progress Note ---
Subjective - Review of Systems Service Date: 06/13/16 Events since last encounter: no new sx had us abd, noted p/e vss heent wnl c/r cap, s1,s2 nl gi/u soft bs+ shle no p/e lne nms awake a/p stable hepc tx'd leukocytosis stable and down f/u as needed Objective - Results Result Diagrams: 06/12/16 09:10 06/13/16 13:00 Recent Labs: Laboratory Last Values WBC 29.4 Th/cmm (4.8-10.8) H* D 06/12/16 09:10 RBC 3.30 Mil/cmm (3.80-5.10) L 06/12/16 09:10 Hgb 8.6 gm/dL (11.7-15.5) L 06/12/16 09:10 Hct 26.1 % (35.0-45.0) L 06/12/16 09:10 MCV 79.0 fl (81-100) L 06/12/16 09:10 MCH 26.1 pg (27.0-31.0) L 06/12/16 09:10 MCHC Differential 33.0 pg (28.0-36.0) 06/12/16 09:10 RDW 15.3 % (11.5-20.0) 06/12/16 09:10 Plt Count 375 Th/cmm (150-400) 06/12/16 09:10 MPV 9.1 fl 06/12/16 09:10 Band Neutrophils % 6 % (0-10) 06/12/16 09:10 Neutrophils (Manual) 80 % (40-80) 06/12/16 09:10 Lymphocytes 5 % (20-50) L 06/12/16 09:10 Monocytes 6 % (2-10) 06/12/16 09:10 Eosinophils 0 % (0-5) 06/11/16 06:44 Basophils 1 % (0-3) 06/09/16 17:33 Metamyelocytes 2 % (0-0) H 06/12/16 09:10 Atypical Lymphocytes 1 % 06/12/16 09:10 Hypochromia 1+ 06/09/16 17:33 Platelet Estimate ADEQUATE (NORMAL) 06/12/16 09:10 Platelet Morphology NORMAL (NORMAL) 06/12/16 09:10 Anisocytosis 1+ 06/11/16 06:44 Microcytosis 1+ 06/11/16 06:44 RBC Morph Micro Appear NORMAL (NORMAL) 06/12/16 09:10 Smear Path Review 06/11/16 06:44 Sodium 137 mEq/L (136-145) 06/13/16 13:00 Potassium 3.9 mEq/L (3.5-5.1) 06/13/16 13:00 Chloride 109 mEq/L (98-107) H 06/13/16 13:00 Carbon Dioxide 24.2 mEq/L (21.0-31.0) 06/13/16 13:00 Anion Gap 7.7 (7.0-16.0) 06/13/16 13:00 BUN 13 mg/dL (7-25) 06/13/16 13:00 Creatinine 0.5 mg/dL (0.6-1.2) L 06/13/16 13:00 Est GFR ( Amer) > 60.0 ml/min (>90) 06/13/16 13:00 Est GFR (Non-Af Amer) > 60.0 ml/min 06/13/16 13:00 BUN/Creatinine Ratio 26.0 06/13/16 13:00 Glucose 100 mg/dL (70-105) 06/13/16 13:00 POC Glucose 113 MG/DL (70 - 105) H 06/13/16 11:21 Whole Bld Lactic Acid 1.64 mmol/L (0.60-2.00) 06/09/16 17:33 Calcium 8.3 mg/dL (8.6-10.3) L 06/13/16 13:00 Total Bilirubin 0.4 mg/dL (0.3-1.0) 06/13/16 13:00 AST 14 U/L (13-39) 06/13/16 13:00 ALT 12 U/L (7-52) 06/13/16 13:00 Alkaline Phosphatase 83 U/L (34-104) 06/13/16 13:00 Ammonia 50 umol/L (16-53) 06/09/16 17:33 Total Protein 5.8 gm/dL (6.0-8.3) L 06/13/16 13:00 Albumin 2.7 gm/dL (3.7-5.3) L 06/13/16 13:00 Globulin 3.1 gm/dL 06/13/16 13:00 Albumin/Globulin Ratio 0.9 (1.0-1.8) L 06/13/16 13:00 Amylase 101 U/L (29-103) 06/09/16 17:33 Lipase 29 U/L (11-82) 06/11/16 06:44 Urine Source CLEAN C 06/12/16 11:50 Urine Color BROWN 06/12/16 11:50 Urine Clarity SL. CLOUDY (CLEAR) 06/12/16 11:50 Urine pH 6.0 06/12/16 11:50 Ur Specific [place] (1.005-1.030) 06/12/16 11:50 Urine Protein NEGATIVE mg/dL (NEGATIVE) 06/12/16 11:50 Urine Glucose (UA) NEGATIVE mg/dL (NEGATIVE) 06/12/16 11:50 Urine Ketones NEGATIVE mg/dL (NEGATIVE) 06/12/16 11:50 Urine Blood NEGATIVE (NEGATIVE) 06/12/16 11:50 Urine Nitrate NEGATIVE (NEGATIVE) 06/12/16 11:50 Urine Bilirubin NEGATIVE (NEGATIVE) 06/12/16 11:50 Urine Urobilinogen 0.2 E.U./dL (0.2 - 1.0) 06/12/16 11:50 Ur Leukocyte Esterase NEGATIVE (NEGATIVE) 06/12/16 11:50 Urine RBC 0-1 /hpf (0-5) 06/12/16 11:50 Urine WBC NONE SEEN /hpf (0-5) 06/12/16 11:50 Ur Epithelial Cells FEW /lpf (FEW) 06/12/16 11:50 Urine Bacteria NONE SEEN /hpf (NONE SEEN) 06/12/16 11:50 Vancomycin Trough 23.3 ug/mL (10-20) H 06/13/16 13:00 - Physical Exam Vitals and I&O: Vital Signs Temp 98.6 F 06/13/16 12:00 Pulse 74 06/13/16 12:00 Resp 18 06/13/16 12:00 BP 128/80 06/13/16 12:00 Pulse Ox 94 06/13/16 12:00 Intake & Output 06/12/16 06/13/16 06/13/16 18:59 06:59 18:59 Intake Total 650 300 200 Output Total 0 Balance 650 300 200 Intake: Intake, IV Amount 650 300 200 Meropenem 1 gm In Sodium 200 100 100 Chloride 0.9% 100 ml @ 100 mls/hr IV Q8H [facility] Rx# :[id number] Vancomycin HCl 1.25 gm In 250 Sodium Chloride 0.9% 250 ml @ 165 mls/hr IV Q12H [facility] Rx#:[id number] metroNIDAZOLE 500mg/NS 200 200 100 100mL 500 mg In 100 ml @ 100 mls/hr IV Q8HR [facility] Rx #:[id number] Output: Stool 0 Other: # Voids 2 Active Medications: Current Medications Acetaminophen/Hydrocodone Bitart ([place] 5mg/325mg) 1 tab PO Q4H PRN PRN Reason: Pain (Moderate) Stop: 08/08/16 22:26 Last Admin: 06/13/16 10:03 Dose: 1 tab Benazepril HCl (Lotensin) 10 mg PO DAILY [facility] Stop: 08/09/16 08:59 Last Admin: 06/13/16 10:07 Dose: Not Given Furosemide (Lasix) 20 mg PO DAILY [facility] Stop: 08/09/16 08:59 Last Admin: 06/13/16 10:07 Dose: Not Given Heparin Sodium (Porcine) (Heparin) 5,000 units SUBQ Q12HR [facility] Stop: 08/09/16 08:59 Last Admin: 06/13/16 12:32 Dose: 5,000 units Heparin Sodium (Porcine) (Heparin) 5,000 units SUBQ Q12HR [facility] Stop: 08/09/16 20:59 Last Admin: 06/11/16 20:27 Dose: 5,000 units Metronidazole (Flagyl) 500 mg in 100 mls @ 100 mls/hr IV Q8HR [facility] Stop: 08/09/16 04:59 Last Infusion: 06/13/16 15:54 Dose: Infused Meropenem 1 gm/ Sodium (Chloride) 100 mls @ 100 mls/hr IV Q8H [facility] Stop: 08/10/16 15:59 Last Infusion: 06/13/16 15:54 Dose: Infused Vancomycin HCl 1 gm/ Sodium (Chloride) 250 mls @ 165 mls/hr IV Q12H [facility] Stop: 08/12/16 19:59 Lactulose (Cephulac) 20 gm PO DAILY [facility] Stop: 08/09/16 08:59 Last Admin: 06/13/16 10:08 Dose: Not Given Mineral Oil (Mineral Oil 30 Ml) 30 ml PO DAILY PRN PRN Reason: Constipation Stop: 08/09/16 09:07 Last Admin: 06/12/16 16:29 Dose: 30 ml Miscellaneous (Vte Chemical Prophylaxis Screen/ Admission) 1 [facility] PRN PRN PRN Reason: PROTOCOL Stop: 08/09/16 14:59 Miscellaneous (Vancomycin Iv Per Pharmacy) 1 [facility] PRN [facility] Stop: 08/10/16 12:14 Multivitamins/Vitamin C (Theragran) 1 tab PO DAILY [facility] Stop: 08/09/16 08:59 Last Admin: 06/13/16 10:08 Dose: Not Given Ondansetron HCl (Zofran) 4 mg IV Q6H PRN PRN Reason: Nausea / Vomiting Stop: 08/08/16 22:28 Last Admin: 06/11/16 08:18 Dose: 4 mg Pantoprazole Sodium (Protonix) 40 mg PO DAILY [facility] Stop: 08/09/16 08:59 Last Admin: 06/13/16 10:08 Dose: Not Given Polyethylene Glycol (Miralax) 17 gm PO DAILY [facility] Stop: 08/11/16 08:59 Last Admin: 06/13/16 10:08 Dose: Not Given Rifaximin (Xifaxan) 600 mg PO BID [facility] Stop: 08/10/16 16:59 Last Admin: 06/13/16 10:09 Dose: Not Given Assessment/Plan - Problem List Patient Problems: All Active Problems LOWER ABDOMINAL PAIN AFTER STRAINING (Acute)
[2016-06-14] MEDS: Meropenem 1 gm in NS 0.9% 100 ML IV SCH ×3 (00:35→16:25)
[2016-06-14] MEDS: Hydrocodone/APAP 5mg/325mg Tab PO PRN ×4 (02:21→20:18)
[2016-06-14] MEDS: metroNIDAZOLE 500mg/NS 100mL 500 MG/100 ML BAG IV SCH ×3 (05:11→20:26)
[2016-06-14 09:36] LABS: HEMATOCRIT 27.1 % (35.0-45.0); HEMOGLOBIN 8.9 gm/dL (11.7-15.5); MEAN CELL VOLUME 78.8 fl (81-100); MEAN CORPUSCULAR HGB CONC 32.9 pg (28.0-36.0); MEAN PLATELET VOLUME 9.7 fl; PLATELET COUNT 422 Th/cmm (150-400); RED BLOOD COUNT 3.44 Mil/cmm (3.80-5.10)
[2016-06-14 09:38] LABS: WHITE BLOOD COUNT 15.1 Th/cmm (4.8-10.8)
[2016-06-14 11:04] LABS: ANISOCYTOSIS 1+; BAND NEUTROPHILE 1 % (0-10); BASOPHIL 1 % (0-3); EOSINOPHIL 1 % (0-5); MICROCYTOSIS 1+; NEUTROPHILS 65 % (40-80); TOTAL CELLS COUNTED 100
[2016-06-14 11:05] LABS: PLATELET ESTIMATE ADEQUATE (NORMAL); PLATELET MORPHOLOGY NORMAL (NORMAL)
[2016-06-14] MEDS: Lactulose 10 Gm/15 mL 30mL UDC PO SCH (11:17)
[2016-06-14] MEDS: Multivitamin Tab PO SCH (11:17)
[2016-06-14] MEDS: POLYETHYLENE GLYCOL 3350 17 GM PACK PO SCH (11:18)
[2016-06-14] MEDS: Pantoprazole 40 mg EC Tab PO SCH (11:18)
--- NOTE | 2016-06-14 13:12 | General Progress Note ---
Subjective - Review of Systems Service Date: 06/14/16 Subjective: HAVING BM'S AFTER BOWEL PREP BUT STILL SOME LUQ/LLQ PAIN. Objective - Results Result Diagrams: 06/13/16 13:00 06/13/16 13:00 Recent Labs: Laboratory Last Values WBC 15.1 Th/cmm (4.8-10.8) H D 06/13/16 13:00 RBC 3.44 Mil/cmm (3.80-5.10) L 06/13/16 13:00 Hgb 8.9 gm/dL (11.7-15.5) L 06/13/16 13:00 Hct 27.1 % (35.0-45.0) L 06/13/16 13:00 MCV 78.8 fl (81-100) L 06/13/16 13:00 MCH 26.0 pg (27.0-31.0) L 06/13/16 13:00 MCHC Differential 32.9 pg (28.0-36.0) 06/13/16 13:00 RDW 16.0 % (11.5-20.0) 06/13/16 13:00 Plt Count 422 Th/cmm (150-400) H 06/13/16 13:00 MPV 9.7 fl 06/13/16 13:00 Band Neutrophils % 1 % (0-10) 06/13/16 13:00 Neutrophils (Manual) 65 % (40-80) 06/13/16 13:00 Lymphocytes 22 % (20-50) 06/13/16 13:00 Monocytes 10 % (2-10) 06/13/16 13:00 Eosinophils 1 % (0-5) 06/13/16 13:00 Basophils 1 % (0-3) 06/13/16 13:00 Metamyelocytes 2 % (0-0) H 06/12/16 09:10 Atypical Lymphocytes 1 % 06/12/16 09:10 Hypochromia 1+ 06/09/16 17:33 Platelet Estimate ADEQUATE (NORMAL) 06/13/16 13:00 Platelet Morphology NORMAL (NORMAL) 06/13/16 13:00 Anisocytosis 1+ 06/13/16 13:00 Microcytosis 1+ 06/13/16 13:00 RBC Morph Micro Appear ABNORMAL (NORMAL) 06/13/16 13:00 Smear Path Review 06/11/16 06:44 Sodium 137 mEq/L (136-145) 06/13/16 13:00 Potassium 3.9 mEq/L (3.5-5.1) 06/13/16 13:00 Chloride 109 mEq/L (98-107) H 06/13/16 13:00 Carbon Dioxide 24.2 mEq/L (21.0-31.0) 06/13/16 13:00 Anion Gap 7.7 (7.0-16.0) 06/13/16 13:00 BUN 13 mg/dL (7-25) 06/13/16 13:00 Creatinine 0.5 mg/dL (0.6-1.2) L 06/13/16 13:00 Est GFR ( Amer) > 60.0 ml/min (>90) 06/13/16 13:00 Est GFR (Non-Af Amer) > 60.0 ml/min 06/13/16 13:00 BUN/Creatinine Ratio 26.0 06/13/16 13:00 Glucose 100 mg/dL (70-105) 06/13/16 13:00 POC Glucose 113 MG/DL (70 - 105) H 06/13/16 11:21 Whole Bld Lactic Acid 1.64 mmol/L (0.60-2.00) 06/09/16 17:33 Calcium 8.3 mg/dL (8.6-10.3) L 06/13/16 13:00 Total Bilirubin 0.4 mg/dL (0.3-1.0) 06/13/16 13:00 AST 14 U/L (13-39) 06/13/16 13:00 ALT 12 U/L (7-52) 06/13/16 13:00 Alkaline Phosphatase 83 U/L (34-104) 06/13/16 13:00 Ammonia 50 umol/L (16-53) 06/09/16 17:33 Total Protein 5.8 gm/dL (6.0-8.3) L 06/13/16 13:00 Albumin 2.7 gm/dL (3.7-5.3) L 06/13/16 13:00 Globulin 3.1 gm/dL 06/13/16 13:00 Albumin/Globulin Ratio 0.9 (1.0-1.8) L 06/13/16 13:00 Amylase 101 U/L (29-103) 06/09/16 17:33 Lipase 29 U/L (11-82) 06/11/16 06:44 Urine Source CLEAN C 06/12/16 11:50 Urine Color BROWN 06/12/16 11:50 Urine Clarity SL. CLOUDY (CLEAR) 06/12/16 11:50 Urine pH 6.0 06/12/16 11:50 Ur Specific [place] (1.005-1.030) 06/12/16 11:50 Urine Protein NEGATIVE mg/dL (NEGATIVE) 06/12/16 11:50 Urine Glucose (UA) NEGATIVE mg/dL (NEGATIVE) 06/12/16 11:50 Urine Ketones NEGATIVE mg/dL (NEGATIVE) 06/12/16 11:50 Urine Blood NEGATIVE (NEGATIVE) 06/12/16 11:50 Urine Nitrate NEGATIVE (NEGATIVE) 06/12/16 11:50 Urine Bilirubin NEGATIVE (NEGATIVE) 06/12/16 11:50 Urine Urobilinogen 0.2 E.U./dL (0.2 - 1.0) 06/12/16 11:50 Ur Leukocyte Esterase NEGATIVE (NEGATIVE) 06/12/16 11:50 Urine RBC 0-1 /hpf (0-5) 06/12/16 11:50 Urine WBC NONE SEEN /hpf (0-5) 06/12/16 11:50 Ur Epithelial Cells FEW /lpf (FEW) 06/12/16 11:50 Urine Bacteria NONE SEEN /hpf (NONE SEEN) 06/12/16 11:50 Vancomycin Trough 23.3 ug/mL (10-20) H 06/13/16 13:00 - Physical Exam Vitals and I&O: Vital Signs Temp 99.0 F 06/14/16 08:00 Pulse 80 06/14/16 11:16 Resp 17 06/14/16 08:00 BP 129/71 06/14/16 11:17 Pulse Ox 95 06/14/16 08:00 Intake & Output 06/13/16 06/14/16 06/14/16 18:59 06:59 18:59 Intake Total 200 3650 Output Total 4 Balance 200 3646 Intake: Intake, IV Amount 200 650 Meropenem 1 gm In Sodium 100 200 Chloride 0.9% 100 ml @ 100 mls/hr IV Q8H [facility] Rx# :[id number] Vancomycin HCl 1 gm In 250 Sodium Chloride 0.9% 250 ml @ 165 mls/hr IV Q12H [facility] Rx#:[id number] metroNIDAZOLE 500mg/NS 100 200 100mL 500 mg In 100 ml @ 100 mls/hr IV Q8HR [facility] Rx #:[id number] Oral 3000 Output: Urine 4 Other: # Bowel Movements 1 Active Medications: Current Medications Acetaminophen/Hydrocodone Bitart ([place] 5mg/325mg) 1 tab PO Q4H PRN PRN Reason: Pain (Moderate) Stop: 08/08/16 22:26 Last Admin: 06/14/16 11:22 Dose: 1 tab Benazepril HCl (Lotensin) 10 mg PO DAILY [facility] Stop: 08/09/16 08:59 Last Admin: 06/14/16 11:16 Dose: Not Given Bisacodyl (Dulcolax 5 Mg Ec Tab) 10 mg PO X1 ONE Stop: 06/14/16 16:01 Furosemide (Lasix) 20 mg PO DAILY [facility] Stop: 08/09/16 08:59 Last Admin: 06/14/16 11:17 Dose: Not Given Heparin Sodium (Porcine) (Heparin) 5,000 units SUBQ Q12HR [facility] Stop: 08/09/16 08:59 Last Admin: 06/14/16 10:09 Dose: 5,000 units Heparin Sodium (Porcine) (Heparin) 5,000 units SUBQ Q12HR [facility] Stop: 08/09/16 20:59 Last Admin: 06/14/16 10:02 Dose: Not Given Metronidazole (Flagyl) 500 mg in 100 mls @ 100 mls/hr IV Q8HR [facility] Stop: 08/09/16 04:59 Last Admin: 06/14/16 12:17 Dose: 100 mls/hr Meropenem 1 gm/ Sodium (Chloride) 100 mls @ 100 mls/hr IV Q8H [facility] Stop: 08/10/16 15:59 Last Admin: 06/14/16 10:07 Dose: 100 mls/hr Vancomycin HCl 1 gm/ Sodium (Chloride) 250 mls @ 165 mls/hr IV Q12H [facility] Stop: 08/12/16 19:59 Last Admin: 06/14/16 11:13 Dose: 165 mls/hr Lactulose (Cephulac) 20 gm PO DAILY [facility] Stop: 08/09/16 08:59 Last Admin: 06/14/16 11:17 Dose: Not Given Mineral Oil (Mineral Oil 30 Ml) 30 ml PO DAILY PRN PRN Reason: Constipation Stop: 08/09/16 09:07 Last Admin: 06/12/16 16:29 Dose: 30 ml Miscellaneous ([employer] Prophylaxis Screen/ Admission) 1 [facility] PRN PRN PRN Reason: PROTOCOL Stop: 08/09/16 14:59 Miscellaneous (Vancomycin Iv Per Pharmacy) 1 [facility] PRN [facility] Stop: 08/10/16 12:14 Multivitamins/Vitamin C (Theragran) 1 tab PO DAILY [facility] Stop: 08/09/16 08:59 Last Admin: 06/14/16 11:17 Dose: Not Given Ondansetron HCl (Zofran) 4 mg IV Q6H PRN PRN Reason: Nausea / Vomiting Stop: 08/08/16 22:28 Last Admin: 06/11/16 08:18 Dose: 4 mg Pantoprazole Sodium (Protonix) 40 mg PO DAILY [facility] Stop: 08/09/16 08:59 Last Admin: 06/14/16 11:18 Dose: Not Given Polyethylene Glycol (Miralax) 17 gm PO DAILY [facility] Stop: 08/11/16 08:59 Last Admin: 06/14/16 11:18 Dose: Not Given Polyethylene Glycol/Electrolytes (Golytely) 4,000 ml PO X1 ONE Stop: 06/14/16 13:10 Rifaximin (Xifaxan) 600 mg PO BID [facility] Stop: 08/10/16 16:59 Last Admin: 06/14/16 11:18 Dose: Not Given General: Alert, Oriented x3 HEENT: Atraumatic Cardiovascular: Regular rate Lungs: Clear to auscultation Abdomen: Bowel sounds, Soft, Tender (L SIDED) Psych/Mental Status: Mental status NL Assessment/Plan - Problem List Patient Problems: All Active Problems LOWER ABDOMINAL PAIN AFTER STRAINING (Acute) - Assessment Assessment: 1. L SIDED ABD PAIN - R/O CONSTIPATION VS. DIVERTICULAR DISEASE VS. COLITIS VS. UGI SOURCE. 2. ANEMIA. 3. OBESITY. - Plan Plan: 1. EGD AND COLONOSCOPY TO BE REPEATED TOMORROW. 2. CONTINUE BOWEL PREP. 3. STOOL SOFTENERS AND PROTONIX.
--- NOTE | 2016-06-14 16:49 | General Progress Note ---
Subjective - Review of Systems Service Date: 06/14/16 Subjective: s: no new sx Objective - Results Result Diagrams: 06/13/16 13:00 06/13/16 13:00 Recent Labs: Laboratory Last Values WBC 15.1 Th/cmm (4.8-10.8) H D 06/13/16 13:00 RBC 3.44 Mil/cmm (3.80-5.10) L 06/13/16 13:00 Hgb 8.9 gm/dL (11.7-15.5) L 06/13/16 13:00 Hct 27.1 % (35.0-45.0) L 06/13/16 13:00 MCV 78.8 fl (81-100) L 06/13/16 13:00 MCH 26.0 pg (27.0-31.0) L 06/13/16 13:00 MCHC Differential 32.9 pg (28.0-36.0) 06/13/16 13:00 RDW 16.0 % (11.5-20.0) 06/13/16 13:00 Plt Count 422 Th/cmm (150-400) H 06/13/16 13:00 MPV 9.7 fl 06/13/16 13:00 Band Neutrophils % 1 % (0-10) 06/13/16 13:00 Neutrophils (Manual) 65 % (40-80) 06/13/16 13:00 Lymphocytes 22 % (20-50) 06/13/16 13:00 Monocytes 10 % (2-10) 06/13/16 13:00 Eosinophils 1 % (0-5) 06/13/16 13:00 Basophils 1 % (0-3) 06/13/16 13:00 Metamyelocytes 2 % (0-0) H 06/12/16 09:10 Atypical Lymphocytes 1 % 06/12/16 09:10 Hypochromia 1+ 06/09/16 17:33 Platelet Estimate ADEQUATE (NORMAL) 06/13/16 13:00 Platelet Morphology NORMAL (NORMAL) 06/13/16 13:00 Anisocytosis 1+ 06/13/16 13:00 Microcytosis 1+ 06/13/16 13:00 RBC Morph Micro Appear ABNORMAL (NORMAL) 06/13/16 13:00 Smear Path Review 06/11/16 06:44 Sodium 137 mEq/L (136-145) 06/13/16 13:00 Potassium 3.9 mEq/L (3.5-5.1) 06/13/16 13:00 Chloride 109 mEq/L (98-107) H 06/13/16 13:00 Carbon Dioxide 24.2 mEq/L (21.0-31.0) 06/13/16 13:00 Anion Gap 7.7 (7.0-16.0) 06/13/16 13:00 BUN 13 mg/dL (7-25) 06/13/16 13:00 Creatinine 0.5 mg/dL (0.6-1.2) L 06/13/16 13:00 Est GFR ( Amer) > 60.0 ml/min (>90) 06/13/16 13:00 Est GFR (Non-Af Amer) > 60.0 ml/min 06/13/16 13:00 BUN/Creatinine Ratio 26.0 06/13/16 13:00 Glucose 100 mg/dL (70-105) 06/13/16 13:00 POC Glucose 113 MG/DL (70 - 105) H 06/13/16 11:21 Whole Bld Lactic Acid 1.64 mmol/L (0.60-2.00) 06/09/16 17:33 Calcium 8.3 mg/dL (8.6-10.3) L 06/13/16 13:00 Total Bilirubin 0.4 mg/dL (0.3-1.0) 06/13/16 13:00 AST 14 U/L (13-39) 06/13/16 13:00 ALT 12 U/L (7-52) 06/13/16 13:00 Alkaline Phosphatase 83 U/L (34-104) 06/13/16 13:00 Ammonia 50 umol/L (16-53) 06/09/16 17:33 Total Protein 5.8 gm/dL (6.0-8.3) L 06/13/16 13:00 Albumin 2.7 gm/dL (3.7-5.3) L 06/13/16 13:00 Globulin 3.1 gm/dL 06/13/16 13:00 Albumin/Globulin Ratio 0.9 (1.0-1.8) L 06/13/16 13:00 Amylase 101 U/L (29-103) 06/09/16 17:33 Lipase 29 U/L (11-82) 06/11/16 06:44 Urine Source CLEAN C 06/12/16 11:50 Urine Color BROWN 06/12/16 11:50 Urine Clarity SL. CLOUDY (CLEAR) 06/12/16 11:50 Urine pH 6.0 06/12/16 11:50 Ur Specific [place] (1.005-1.030) 06/12/16 11:50 Urine Protein NEGATIVE mg/dL (NEGATIVE) 06/12/16 11:50 Urine Glucose (UA) NEGATIVE mg/dL (NEGATIVE) 06/12/16 11:50 Urine Ketones NEGATIVE mg/dL (NEGATIVE) 06/12/16 11:50 Urine Blood NEGATIVE (NEGATIVE) 06/12/16 11:50 Urine Nitrate NEGATIVE (NEGATIVE) 06/12/16 11:50 Urine Bilirubin NEGATIVE (NEGATIVE) 06/12/16 11:50 Urine Urobilinogen 0.2 E.U./dL (0.2 - 1.0) 06/12/16 11:50 Ur Leukocyte Esterase NEGATIVE (NEGATIVE) 06/12/16 11:50 Urine RBC 0-1 /hpf (0-5) 06/12/16 11:50 Urine WBC NONE SEEN /hpf (0-5) 06/12/16 11:50 Ur Epithelial Cells FEW /lpf (FEW) 06/12/16 11:50 Urine Bacteria NONE SEEN /hpf (NONE SEEN) 06/12/16 11:50 Vancomycin Trough 23.3 ug/mL (10-20) H 06/13/16 13:00 - Physical Exam Vitals and I&O: Vital Signs Temp 98.3 F 06/14/16 16:00 Pulse 70 06/14/16 16:00 Resp 18 06/14/16 16:00 BP 122/71 06/14/16 16:00 Pulse Ox 95 06/14/16 16:00 Intake & Output 06/13/16 06/14/16 06/14/16 18:59 06:59 18:59 Intake Total 200 3650 100 Output Total 4 Balance 200 3646 100 Intake: Intake, IV Amount 200 650 100 Meropenem 1 gm In Sodium 100 200 100 Chloride 0.9% 100 ml @ 100 mls/hr IV Q8H [facility] Rx# :[id number] Vancomycin HCl 1 gm In 250 Sodium Chloride 0.9% 250 ml @ 165 mls/hr IV Q12H [facility] Rx#:[id number] metroNIDAZOLE 500mg/NS 100 200 100mL 500 mg In 100 ml @ 100 mls/hr IV Q8HR [facility] Rx #:[id number] Oral 3000 Output: Urine 4 Other: # Bowel Movements 1 Active Medications: Current Medications Acetaminophen/Hydrocodone Bitart ([place] 5mg/325mg) 1 tab PO Q4H PRN PRN Reason: Pain (Moderate) Stop: 08/08/16 22:26 Last Admin: 06/14/16 15:13 Dose: 1 tab Benazepril HCl (Lotensin) 10 mg PO DAILY [facility] Stop: 08/09/16 08:59 Last Admin: 06/14/16 11:16 Dose: Not Given Furosemide (Lasix) 20 mg PO DAILY [facility] Stop: 08/09/16 08:59 Last Admin: 06/14/16 11:17 Dose: Not Given Heparin Sodium (Porcine) (Heparin) 5,000 units SUBQ Q12HR [facility] Stop: 08/09/16 08:59 Last Admin: 06/14/16 10:09 Dose: 5,000 units Heparin Sodium (Porcine) (Heparin) 5,000 units SUBQ Q12HR [facility] Stop: 08/09/16 20:59 Last Admin: 06/14/16 10:02 Dose: Not Given Metronidazole (Flagyl) 500 mg in 100 mls @ 100 mls/hr IV Q8HR [facility] Stop: 08/09/16 04:59 Last Admin: 06/14/16 12:17 Dose: 100 mls/hr Meropenem 1 gm/ Sodium (Chloride) 100 mls @ 100 mls/hr IV Q8H [facility] Stop: 08/10/16 15:59 Last Admin: 06/14/16 16:25 Dose: 100 mls/hr Vancomycin HCl 1 gm/ Sodium (Chloride) 250 mls @ 165 mls/hr IV Q12H [facility] Stop: 08/12/16 19:59 Last Admin: 06/14/16 11:13 Dose: 165 mls/hr Lactulose (Cephulac) 20 gm PO DAILY [facility] Stop: 08/09/16 08:59 Last Admin: 06/14/16 11:17 Dose: Not Given Mineral Oil (Mineral Oil 30 Ml) 30 ml PO DAILY PRN PRN Reason: Constipation Stop: 08/09/16 09:07 Last Admin: 06/12/16 16:29 Dose: 30 ml Miscellaneous (Vte Chemical Prophylaxis Screen/ Admission) 1 ea PRN PRN PRN Reason: PROTOCOL Stop: 08/09/16 14:59 Miscellaneous (Vancomycin Iv Per Pharmacy) 1 ea PRN [facility] Stop: 08/10/16 12:14 Multivitamins/Vitamin C (Theragran) 1 tab PO DAILY [facility] Stop: 08/09/16 08:59 Last Admin: 06/14/16 11:17 Dose: Not Given Ondansetron HCl (Zofran) 4 mg IV Q6H PRN PRN Reason: Nausea / Vomiting Stop: 08/08/16 22:28 Last Admin: 06/11/16 08:18 Dose: 4 mg Pantoprazole Sodium (Protonix) 40 mg PO DAILY [facility] Stop: 08/09/16 08:59 Last Admin: 06/14/16 11:18 Dose: Not Given Polyethylene Glycol (Miralax) 17 gm PO DAILY [facility] Stop: 08/11/16 08:59 Last Admin: 06/14/16 11:18 Dose: Not Given Rifaximin (Xifaxan) 600 mg PO BID [facility] Stop: 08/10/16 16:59 Last Admin: 06/14/16 16:25 Dose: 600 mg General: Alert, Oriented x3, Cooperative, No acute distress HEENT: Atraumatic, PERRLA, EOMI Neck: Supple, JVD Cardiovascular: Regular rate, Normal S1, Normal S2 Lungs: Clear to auscultation Abdomen: Bowel sounds, Soft, Tender Extremities: Clubbing, Cyanosis, Edema Neurological: Normal gait, Normal speech Psych/Mental Status: Mental status NL Assessment/Plan - Problem List Patient Problems: All Active Problems LOWER ABDOMINAL PAIN AFTER STRAINING (Acute) - Assessment Assessment: hepC cirrhosis, ch pain - Plan Plan: fu as needed
[2016-06-14] MEDS ORDERED: Magnesium Citrate 1.75 GM/300 mL Bottle PO ONE (23:56)
[2016-06-15] MEDS ORDERED: Lactulose 10 Gm/15 mL 30mL UDC PO ONE
[2016-06-15] MEDS: Hydrocodone/APAP 5mg/325mg Tab PO PRN ×4 (00:50→22:04)
[2016-06-15] MEDS: Meropenem 1 gm in NS 0.9% 100 ML IV SCH ×3 (01:40→16:09)
[2016-06-15 05:42] LABS: % BASOPHILS 3.7 % (0.0-2.0); % EOSINOPHILS 0.9 % (0.0-5.0); % LYMPHOCYTES 10.7 % (20.0-50.0); % MONOCYTES 10.3 % (2.0-10.0); % NEUTROPHILS 74.4 % (40.0-80.0); HEMATOCRIT 27.3 % (35.0-45.0); HEMOGLOBIN 9.2 gm/dL (11.7-15.5); MEAN CELL VOLUME 77.5 fl (81-100); MEAN CORPUSCULAR HEMOGLOBIN 26.1 pg (27.0-31.0); MEAN CORPUSCULAR HGB CONC 33.7 pg (28.0-36.0); MEAN PLATELET VOLUME 8.5 fl; NEUTROPHILE ABSOLUTE 8.7 Th/cmm (1.8-8.0); PLATELET COUNT 444 Th/cmm (150-400); RED BLOOD COUNT 3.53 Mil/cmm (3.80-5.10); RED CELL DISTRIBUTION WIDTH 15.7 % (11.5-20.0)
[2016-06-15 05:58] LABS: INR 1.12 (0.5-1.4); PROTHROMBIN TIME (TEST) 11.2 SECONDS (9.5-11.5)
[2016-06-15 06:06] LABS: WHITE BLOOD COUNT 11.7 Th/cmm (4.8-10.8)
[2016-06-15 06:16] LABS: ANION GAP 8.4 (7.0-16.0); BUN - UREA NITROGEN 7 mg/dL (7-25); CALCIUM SERUM 8.4 mg/dL (8.6-10.3); CARBON DIOXIDE 25.1 mEq/L (21.0-31.0); CHLORIDE 104 mEq/L (98-107); CREATININE - SERUM 0.5 mg/dL (0.6-1.2); GLUCOSE 109 mg/dL (70-105); POTASSIUM SERUM 3.5 mEq/L (3.5-5.1); SODIUM SERUM 134 mEq/L (136-145)
[2016-06-15] MEDS: metroNIDAZOLE 500mg/NS 100mL 500 MG/100 ML BAG IV SCH ×3 (06:22→21:49)
[2016-06-15] MEDS: Lactulose 10 Gm/15 mL 30mL UDC PO SCH (10:52)
[2016-06-15] MEDS: Multivitamin Tab PO SCH (10:53)
[2016-06-15] MEDS: POLYETHYLENE GLYCOL 3350 17 GM PACK PO SCH (10:53)
[2016-06-15] MEDS: Pantoprazole 40 mg EC Tab PO SCH (10:53)
--- NOTE | 2016-06-15 14:06 | Operative Report ---
PROCEDURE: 1. Esophagogastroduodenoscopy with biopsy. 2. Colonoscopy with biopsy. PREOPERATIVE DIAGNOSES: 1. Abdominal pain in left upper quadrant. 2. Change in bowel habits. POSTPROCEDURE DIAGNOSES: 1. Upper endoscopy showing small hiatal hernia; mild gastritis, status post biopsy and CLOtest; normal duodenum, status post biopsies, rule out celiac disease. 2. Colonoscopy showing ischemic appearing colitis with linear ulcerations in descending colon involving 15 cm segment, status post biopsy and stool collection; small internal hemorrhoids; limited bowel preparation of left colon. INDICATIONS: A 61-year-old female admitted for vague abdominal pain, constipation and change in bowel habits, undergoing an upper endoscopy and colonoscopy for further evaluation. CONSENT: Informed consent was obtained from the patient prior to procedure after explaining risks, benefits and alternatives including but not limited to infection, bleeding, perforation, , sedation. ANESTHESIA: Monitored anesthesia care by Dr. Galeaon. DESCRIPTION OF PROCEDURE AND FINDINGS: The procedure took place as an inpatient in the GI Suite at [facility]. The patient was kept in left lateral decubitus position. Adequate sedation was achieved by Dr. Galeano. Initially, an upper endoscopy was performed followed by colonoscopy. An Olympus diagnostic upper endoscope was advanced via the patient's mouth and into the esophagus. The esophagus appeared normal with no evidence of esophagitis, stricture, mass, lesions. The Z line was normal appearing at 35 cm from the gums. Retroflexion stomach revealed a small hiatal hernia. No GE junction masses or varices were identified. Mild gastritis was identified in the antrum. Biopsies were obtained from antrum and midbody and submitted for CLOtest as well as pathology. The pyloric channel and duodenum up to second portion appeared normal. Random biopsies were taken of the second portion to rule out celiac disease. The scope was withdrawn from the patient. The patient was then repositioned and colonoscopy performed. Rectal examination revealed normal sphincter tone with no rectal masses. An Olympus pediatric colonoscope was advanced through the patient's anus and into the rectum with ease. It was advanced up to cecum, which was visualized by landmarks of ileocecal valve and appendiceal orifice. The bowel preparation was fair to limited, especially in the left colon where lesion less than 1 cm may have been missed. There was ischemic appearing colitis with linear ulcerations intervening with normal appearing mucosa, involving a 15 cm segment of the descending colon about 45-60 cm from the anal verge. The segment was biopsied to confirm diagnosis and to rule out occult infectious colitis such as Clostridium difficile. Stool was also collected to rule out infectious colitis. Retroflexion in the rectum revealed small internal hemorrhoids. No polyps or mass lesions or diverticula were identified. The patient tolerated the procedure well. No complications. RECOMMENDATION: 1. Follow biopsy results. 2. Check stool studies. 3. Antibiotics. 4. Stool softeners. 5. Diet as tolerated. 6. Consider CT angiogram if symptoms persist, to rule out mesenteric ischemia. Thank you, Dr. Venkata Castano for involving us in the care of your patient. If you have any further questions, please call us. [facility]# [id number] PADMINI
--- NOTE | 2016-06-15 15:49 | General Progress Note ---
Subjective - Review of Systems Service Date: 06/15/16 Events since last encounter: had egd cs by gi Subjective: s: no new sx Objective - Results Result Diagrams: 06/15/16 05:15 06/15/16 05:15 Recent Labs: Laboratory Last Values WBC 11.7 Th/cmm (4.8-10.8) H D 06/15/16 05:15 RBC 3.53 Mil/cmm (3.80-5.10) L 06/15/16 05:15 Hgb 9.2 gm/dL (11.7-15.5) L 06/15/16 05:15 Hct 27.3 % (35.0-45.0) L 06/15/16 05:15 MCV 77.5 fl (81-100) L 06/15/16 05:15 MCH 26.1 pg (27.0-31.0) L 06/15/16 05:15 MCHC Differential 33.7 pg (28.0-36.0) 06/15/16 05:15 RDW 15.7 % (11.5-20.0) 06/15/16 05:15 Plt Count 444 Th/cmm (150-400) H 06/15/16 05:15 MPV 8.5 fl 06/15/16 05:15 Neutrophils % 74.4 % (40.0-80.0) 06/15/16 05:15 Band Neutrophils % 1 % (0-10) 06/13/16 13:00 Lymphocytes % 10.7 % (20.0-50.0) L 06/15/16 05:15 Monocytes % 10.3 % (2.0-10.0) H 06/15/16 05:15 Eosinophils % 0.9 % (0.0-5.0) 06/15/16 05:15 Basophils % 3.7 % (0.0-2.0) H 06/15/16 05:15 Neutrophils (Manual) 65 % (40-80) 06/13/16 13:00 Lymphocytes 22 % (20-50) 06/13/16 13:00 Monocytes 10 % (2-10) 06/13/16 13:00 Eosinophils 1 % (0-5) 06/13/16 13:00 Basophils 1 % (0-3) 06/13/16 13:00 Metamyelocytes 2 % (0-0) H 06/12/16 09:10 Atypical Lymphocytes 1 % 06/12/16 09:10 Hypochromia 1+ 06/09/16 17:33 Platelet Estimate ADEQUATE (NORMAL) 06/13/16 13:00 Platelet Morphology NORMAL (NORMAL) 06/13/16 13:00 Anisocytosis 1+ 06/13/16 13:00 Microcytosis 1+ 06/13/16 13:00 RBC Morph Micro Appear ABNORMAL (NORMAL) 06/13/16 13:00 Smear Path Review 06/11/16 06:44 PT 11.2 SECONDS (9.5-11.5) 06/15/16 05:15 INR 1.12 (0.5-1.4) 06/15/16 05:15 PTT (Actin FS) 26.4 SECONDS (26.0-38.0) 06/15/16 05:15 Sodium 134 mEq/L (136-145) L 06/15/16 05:15 Potassium 3.5 mEq/L (3.5-5.1) 06/15/16 05:15 Chloride 104 mEq/L (98-107) 06/15/16 05:15 Carbon Dioxide 25.1 mEq/L (21.0-31.0) 06/15/16 05:15 Anion Gap 8.4 (7.0-16.0) 06/15/16 05:15 BUN 7 mg/dL (7-25) 06/15/16 05:15 Creatinine 0.5 mg/dL (0.6-1.2) L 06/15/16 05:15 Est GFR ( Amer) > 60.0 ml/min (>90) 06/15/16 05:15 Est GFR (Non-Af Amer) > 60.0 ml/min 06/15/16 05:15 BUN/Creatinine Ratio 14.0 06/15/16 05:15 Glucose 109 mg/dL (70-105) H 06/15/16 05:15 POC Glucose 124 MG/DL (70 - 105) H 06/15/16 06:47 Whole Bld Lactic Acid 1.64 mmol/L (0.60-2.00) 06/09/16 17:33 Calcium 8.4 mg/dL (8.6-10.3) L 06/15/16 05:15 Total Bilirubin 0.4 mg/dL (0.3-1.0) 06/13/16 13:00 AST 14 U/L (13-39) 06/13/16 13:00 ALT 12 U/L (7-52) 06/13/16 13:00 Alkaline Phosphatase 83 U/L (34-104) 06/13/16 13:00 Ammonia 50 umol/L (16-53) 06/09/16 17:33 Total Protein 5.8 gm/dL (6.0-8.3) L 06/13/16 13:00 Albumin 2.7 gm/dL (3.7-5.3) L 06/13/16 13:00 Globulin 3.1 gm/dL 06/13/16 13:00 Albumin/Globulin Ratio 0.9 (1.0-1.8) L 06/13/16 13:00 Amylase 101 U/L (29-103) 06/09/16 17:33 Lipase 29 U/L (11-82) 06/11/16 06:44 Urine Source CLEAN C 06/12/16 11:50 Urine Color BROWN 06/12/16 11:50 Urine Clarity SL. CLOUDY (CLEAR) 06/12/16 11:50 Urine pH 6.0 06/12/16 11:50 Ur Specific [place] (1.005-1.030) 06/12/16 11:50 Urine Protein NEGATIVE mg/dL (NEGATIVE) 06/12/16 11:50 Urine Glucose (UA) NEGATIVE mg/dL (NEGATIVE) 06/12/16 11:50 Urine Ketones NEGATIVE mg/dL (NEGATIVE) 06/12/16 11:50 Urine Blood NEGATIVE (NEGATIVE) 06/12/16 11:50 Urine Nitrate NEGATIVE (NEGATIVE) 06/12/16 11:50 Urine Bilirubin NEGATIVE (NEGATIVE) 06/12/16 11:50 Urine Urobilinogen 0.2 E.U./dL (0.2 - 1.0) 06/12/16 11:50 Ur Leukocyte Esterase NEGATIVE (NEGATIVE) 06/12/16 11:50 Urine RBC 0-1 /hpf (0-5) 06/12/16 11:50 Urine WBC NONE SEEN /hpf (0-5) 06/12/16 11:50 Ur Epithelial Cells FEW /lpf (FEW) 06/12/16 11:50 Urine Bacteria NONE SEEN /hpf (NONE SEEN) 06/12/16 11:50 Vancomycin Trough 16.1 ug/mL (10-20) 06/15/16 05:15 - Physical Exam Vitals and I&O: Vital Signs Temp 98.9 F 06/15/16 08:00 Pulse 93 06/15/16 10:51 Resp 18 06/15/16 08:00 BP 138/86 06/15/16 10:52 Pulse Ox 95 06/15/16 08:00 Intake & Output 06/14/16 06/15/16 06/15/16 18:59 06:59 18:59 Intake Total 550 450 100 Balance 550 450 100 Intake: Intake, IV Amount 550 450 100 Meropenem 1 gm In Sodium 200 100 Chloride 0.9% 100 ml @ 100 mls/hr IV Q8H [facility] Rx# :[id number] Vancomycin HCl 1 gm In 250 250 Sodium Chloride 0.9% 250 ml @ 165 mls/hr IV Q12H [facility] Rx#:[id number] metroNIDAZOLE 500mg/NS 100 100 100 100mL 500 mg In 100 ml @ 100 mls/hr IV Q8HR [facility] Rx #:[id number] Active Medications: Current Medications Acetaminophen/Hydrocodone Bitart ([place] 5mg/325mg) 1 tab PO Q4H PRN PRN Reason: Pain (Moderate) Stop: 08/08/16 22:26 Last Admin: 06/15/16 13:47 Dose: 1 tab Benazepril HCl (Lotensin) 10 mg PO DAILY [facility] Stop: 08/09/16 08:59 Last Admin: 06/15/16 10:51 Dose: Not Given Furosemide (Lasix) 20 mg PO DAILY [facility] Stop: 08/09/16 08:59 Last Admin: 06/15/16 10:52 Dose: Not Given Heparin Sodium (Porcine) (Heparin) 5,000 units SUBQ Q12HR [facility] Stop: 08/09/16 20:59 Last Admin: 06/15/16 10:50 Dose: Not Given Metronidazole (Flagyl) 500 mg in 100 mls @ 100 mls/hr IV Q8HR [facility] Stop: 08/09/16 04:59 Last Admin: 06/15/16 12:02 Dose: 100 mls/hr Meropenem 1 gm/ Sodium (Chloride) 100 mls @ 100 mls/hr IV Q8H [facility] Stop: 08/10/16 15:59 Last Admin: 06/15/16 10:16 Dose: 100 mls/hr Vancomycin HCl 1 gm/ Sodium (Chloride) 250 mls @ 165 mls/hr IV Q12H [facility] Stop: 08/12/16 19:59 Last Admin: 06/15/16 08:37 Dose: 165 mls/hr Lactulose (Cephulac) 20 gm PO DAILY [facility] Stop: 08/09/16 08:59 Last Admin: 06/15/16 10:52 Dose: Not Given Mineral Oil (Mineral Oil 30 Ml) 30 ml PO DAILY PRN PRN Reason: Constipation Stop: 08/09/16 09:07 Last Admin: 06/12/16 16:29 Dose: 30 ml Miscellaneous (Vte Chemical Prophylaxis Screen/ Admission) 1 [facility] PRN PRN PRN Reason: PROTOCOL Stop: 08/09/16 14:59 Miscellaneous (Vancomycin Iv Per Pharmacy) 1 [facility] PRN [facility] Stop: 08/10/16 12:14 Multivitamins/Vitamin C (Theragran) 1 tab PO DAILY [facility] Stop: 08/09/16 08:59 Last Admin: 06/15/16 10:53 Dose: Not Given Ondansetron HCl (Zofran) 4 mg IV Q6H PRN PRN Reason: Nausea / Vomiting Stop: 08/08/16 22:28 Last Admin: 06/11/16 08:18 Dose: 4 mg Pantoprazole Sodium (Protonix) 40 mg PO DAILY [facility] Stop: 08/09/16 08:59 Last Admin: 06/15/16 10:53 Dose: Not Given Polyethylene Glycol (Miralax) 17 gm PO DAILY [facility] Stop: 08/11/16 08:59 Last Admin: 06/15/16 10:53 Dose: Not Given Rifaximin (Xifaxan) 600 mg PO BID [facility] Stop: 08/10/16 16:59 Last Admin: 06/15/16 10:53 Dose: Not Given General: Alert, Oriented x3, Cooperative HEENT: Atraumatic, EOMI Neck: Supple, JVD Cardiovascular: Regular rate, Normal S1, Normal S2 Lungs: Clear to auscultation, Normal air movement Abdomen: Bowel sounds, Soft, Distended Neurological: Normal gait Psych/Mental Status: Mental status NL Assessment/Plan - Problem List Patient Problems: All Active Problems LOWER ABDOMINAL PAIN AFTER STRAINING (Acute) - Assessment Assessment: hepC cirrhosis, ch pain - Plan Plan: fu as needed
[2016-06-15 19:19] LABS: HEMATOCRIT 27.3 % (33.0-45.0); RBC RETICULOCYTE COUNT 3.53 Mil/cmm; RETICULOCYTES % COUNTED 4.5 % (0.5-1.5)
[2016-06-16] MEDS: Meropenem 1 gm in NS 0.9% 100 ML IV SCH ×3 (00:27→17:11)
[2016-06-16] MEDS: Hydrocodone/APAP 5mg/325mg Tab PO PRN ×4 (02:37→20:43)
[2016-06-16] MEDS: metroNIDAZOLE 500mg/NS 100mL 500 MG/100 ML BAG IV SCH ×3 (04:23→21:24)
[2016-06-16 10:15] LABS: FOLIC ACID >20.0 ng/mL (>3.0)
--- NOTE | 2016-06-16 12:41 | General Progress Note ---
Subjective - Review of Systems Service Date: 06/16/16 Subjective: s: no new sx Objective - Results Result Diagrams: 06/15/16 05:25 06/15/16 05:15 Recent Labs: Laboratory Last Values WBC 11.7 Th/cmm (4.8-10.8) H D 06/15/16 05:15 RBC 3.53 Mil/cmm (3.80-5.10) L 06/15/16 05:15 Hgb 9.2 gm/dL (11.7-15.5) L 06/15/16 05:15 Hct 27.3 % (33.0-45.0) L 06/15/16 05:25 MCV 77.5 fl (81-100) L 06/15/16 05:15 MCH 26.1 pg (27.0-31.0) L 06/15/16 05:15 MCHC Differential 33.7 pg (28.0-36.0) 06/15/16 05:15 RDW 15.7 % (11.5-20.0) 06/15/16 05:15 Plt Count 444 Th/cmm (150-400) H 06/15/16 05:15 MPV 8.5 fl 06/15/16 05:15 Neutrophils % 74.4 % (40.0-80.0) 06/15/16 05:15 Band Neutrophils % 1 % (0-10) 06/13/16 13:00 Lymphocytes % 10.7 % (20.0-50.0) L 06/15/16 05:15 Monocytes % 10.3 % (2.0-10.0) H 06/15/16 05:15 Eosinophils % 0.9 % (0.0-5.0) 06/15/16 05:15 Basophils % 3.7 % (0.0-2.0) H 06/15/16 05:15 Neutrophils (Manual) 65 % (40-80) 06/13/16 13:00 Lymphocytes 22 % (20-50) 06/13/16 13:00 Monocytes 10 % (2-10) 06/13/16 13:00 Eosinophils 1 % (0-5) 06/13/16 13:00 Basophils 1 % (0-3) 06/13/16 13:00 Metamyelocytes 2 % (0-0) H 06/12/16 09:10 Atypical Lymphocytes 1 % 06/12/16 09:10 Hypochromia 1+ 06/09/16 17:33 Platelet Estimate ADEQUATE (NORMAL) 06/13/16 13:00 Platelet Morphology NORMAL (NORMAL) 06/13/16 13:00 Anisocytosis 1+ 06/13/16 13:00 Microcytosis 1+ 06/13/16 13:00 RBC Morph Micro Appear ABNORMAL (NORMAL) 06/13/16 13:00 Smear Path Review 06/11/16 06:44 Total Retics Counted 4.5 % (0.5-1.5) H 06/15/16 05:25 Absolute Retic 158.9 Th/cmm 06/15/16 05:25 Corrected Retic Count 2.7 % (0.5-1.5) H 06/15/16 05:25 PT 11.2 SECONDS (9.5-11.5) 06/15/16 05:15 INR 1.12 (0.5-1.4) 06/15/16 05:15 PTT (Actin FS) 26.4 SECONDS (26.0-38.0) 06/15/16 05:15 Sodium 134 mEq/L (136-145) L 06/15/16 05:15 Potassium 3.5 mEq/L (3.5-5.1) 06/15/16 05:15 Chloride 104 mEq/L (98-107) 06/15/16 05:15 Carbon Dioxide 25.1 mEq/L (21.0-31.0) 06/15/16 05:15 Anion Gap 8.4 (7.0-16.0) 06/15/16 05:15 BUN 7 mg/dL (7-25) 06/15/16 05:15 Creatinine 0.5 mg/dL (0.6-1.2) L 06/15/16 05:15 Est GFR ( Amer) > 60.0 ml/min (>90) 06/15/16 05:15 Est GFR (Non-Af Amer) > 60.0 ml/min 06/15/16 05:15 BUN/Creatinine Ratio 14.0 06/15/16 05:15 Glucose 109 mg/dL (70-105) H 06/15/16 05:15 POC Glucose 124 MG/DL (70 - 105) H 06/15/16 06:47 Whole Bld Lactic Acid 1.64 mmol/L (0.60-2.00) 06/09/16 17:33 Calcium 8.4 mg/dL (8.6-10.3) L 06/15/16 05:15 Ferritin 46 ng/mL (15-150) 06/15/16 05:15 Total Bilirubin 0.4 mg/dL (0.3-1.0) 06/13/16 13:00 AST 14 U/L (13-39) 06/13/16 13:00 ALT 12 U/L (7-52) 06/13/16 13:00 Alkaline Phosphatase 83 U/L (34-104) 06/13/16 13:00 Ammonia 50 umol/L (16-53) 06/09/16 17:33 Total Protein 5.8 gm/dL (6.0-8.3) L 06/13/16 13:00 Albumin 2.7 gm/dL (3.7-5.3) L 06/13/16 13:00 Globulin 3.1 gm/dL 06/13/16 13:00 Albumin/Globulin Ratio 0.9 (1.0-1.8) L 06/13/16 13:00 Amylase 101 U/L (29-103) 06/09/16 17:33 Lipase 29 U/L (11-82) 06/11/16 06:44 Vitamin B12 >1999 pg/mL (211-946) H 06/15/16 05:15 Folic Acid >20.0 ng/mL (>3.0) 06/15/16 05:15 Urine Source CLEAN C 06/12/16 11:50 Urine Color BROWN 06/12/16 11:50 Urine Clarity SL. CLOUDY (CLEAR) 06/12/16 11:50 Urine pH 6.0 06/12/16 11:50 Ur Specific [place] (1.005-1.030) 06/12/16 11:50 Urine Protein NEGATIVE mg/dL (NEGATIVE) 06/12/16 11:50 Urine Glucose (UA) NEGATIVE mg/dL (NEGATIVE) 06/12/16 11:50 Urine Ketones NEGATIVE mg/dL (NEGATIVE) 06/12/16 11:50 Urine Blood NEGATIVE (NEGATIVE) 06/12/16 11:50 Urine Nitrate NEGATIVE (NEGATIVE) 06/12/16 11:50 Urine Bilirubin NEGATIVE (NEGATIVE) 06/12/16 11:50 Urine Urobilinogen 0.2 E.U./dL (0.2 - 1.0) 06/12/16 11:50 Ur Leukocyte Esterase NEGATIVE (NEGATIVE) 06/12/16 11:50 Urine RBC 0-1 /hpf (0-5) 06/12/16 11:50 Urine WBC NONE SEEN /hpf (0-5) 06/12/16 11:50 Ur Epithelial Cells FEW /lpf (FEW) 06/12/16 11:50 Urine Bacteria NONE SEEN /hpf (NONE SEEN) 06/12/16 11:50 Stool Leukocyte FEW WBC SEEN 06/15/16 13:00 Vancomycin Trough 16.1 ug/mL (10-20) 06/15/16 05:15 - Physical Exam Vitals and I&O: Vital Signs Temp 97.6 F 06/16/16 08:00 Pulse 86 06/16/16 08:00 Resp 18 06/16/16 08:00 BP 107/66 06/16/16 08:00 Pulse Ox 100 06/16/16 08:00 Intake & Output 06/15/16 06/16/16 06/16/16 18:59 06:59 18:59 Intake Total 650 970 Balance 650 970 Intake: Intake, IV Amount 650 550 Meropenem 1 gm In Sodium 200 100 Chloride 0.9% 100 ml @ 100 mls/hr IV Q8H [facility] Rx# :[id number] Vancomycin HCl 1 gm In 250 250 Sodium Chloride 0.9% 250 ml @ 165 mls/hr IV Q12H [facility] Rx#:[id number] metroNIDAZOLE 500mg/NS 200 200 100mL 500 mg In 100 ml @ 100 mls/hr IV Q8HR [facility] Rx #:[id number] Oral 420 Other: # Voids 2 # Bowel Movements 2 Active Medications: Current Medications Acetaminophen/Hydrocodone Bitart ([place] 5mg/325mg) 1 tab PO Q4H PRN PRN Reason: Pain (Moderate) Stop: 08/14/16 21:29 Last Admin: 06/16/16 08:21 Dose: 1 tab Benazepril HCl (Lotensin) 10 mg PO DAILY [facility] Stop: 08/09/16 08:59 Last Admin: 06/15/16 10:51 Dose: Not Given Furosemide (Lasix) 20 mg PO DAILY [facility] Stop: 08/09/16 08:59 Last Admin: 06/15/16 10:52 Dose: Not Given Heparin Sodium (Porcine) (Heparin) 5,000 units SUBQ Q12HR [facility] Stop: 08/14/16 20:59 Last Admin: 06/16/16 10:00 Dose: Not Given Metronidazole (Flagyl) 500 mg in 100 mls @ 100 mls/hr IV Q8HR [facility] Stop: 08/09/16 04:59 Last Infusion: 06/16/16 05:23 Dose: Infused Meropenem 1 gm/ Sodium (Chloride) 100 mls @ 100 mls/hr IV Q8H [facility] Stop: 08/10/16 15:59 Last Admin: 06/16/16 08:24 Dose: 100 mls/hr Vancomycin HCl 1 gm/ Sodium (Chloride) 250 mls @ 165 mls/hr IV Q12H [facility] Stop: 08/12/16 19:59 Last Admin: 06/16/16 09:55 Dose: 165 mls/hr Lactulose (Cephulac) 20 gm PO DAILY [facility] Stop: 08/09/16 08:59 Last Admin: 06/15/16 10:52 Dose: Not Given Mineral Oil (Mineral Oil 30 Ml) 30 ml PO DAILY PRN PRN Reason: Constipation Stop: 08/09/16 09:07 Last Admin: 06/12/16 16:29 Dose: 30 ml Miscellaneous (Vte Chemical Prophylaxis Screen/ Admission) 1 [facility] PRN PRN PRN Reason: PROTOCOL Stop: 08/09/16 14:59 Miscellaneous (Vancomycin Iv Per Pharmacy) 1 [facility] PRN [facility] Stop: 08/10/16 12:14 Multivitamins/Vitamin C (Theragran) 1 tab PO DAILY [facility] Stop: 08/09/16 08:59 Last Admin: 06/15/16 10:53 Dose: Not Given Ondansetron HCl (Zofran) 4 mg IV Q6H PRN PRN Reason: Nausea / Vomiting Stop: 08/08/16 22:28 Last Admin: 06/11/16 08:18 Dose: 4 mg Pantoprazole Sodium (Protonix) 40 mg PO DAILY [facility] Stop: 08/09/16 08:59 Last Admin: 06/15/16 10:53 Dose: Not Given Polyethylene Glycol (Miralax) 17 gm PO DAILY [facility] Stop: 08/11/16 08:59 Last Admin: 06/15/16 10:53 Dose: Not Given Rifaximin (Xifaxan) 600 mg PO BID [facility] Stop: 08/10/16 16:59 Last Admin: 06/15/16 16:09 Dose: 600 mg General: Alert, Oriented x3 HEENT: Atraumatic, EOMI Neck: Supple Cardiovascular: Regular rate, Normal S1, Normal S2 Lungs: Clear to auscultation Abdomen: Bowel sounds, Soft Neurological: Normal gait Psych/Mental Status: Mental status NL - Procedures Procedures: Procedures Procedure Code Date COLONOSCOPY AND BIOPSY 69492 06/09/16 EGD BIOPSY SINGLE/MULTIPLE 52164 06/09/16 EXCISION OF DESCENDING COLON, ENDO, DIAGN [id number] 06/09/16 EXCISION OF STOMACH, ENDO, DIAGN [id number] 06/09/16 Assessment/Plan - Problem List Patient Problems: All Active Problems LOWER ABDOMINAL PAIN AFTER STRAINING (Acute) - Assessment Assessment: hepC cirrhosis, ch pain - Plan Plan: fu as needed
[2016-06-16] MEDS: Lactulose 10 Gm/15 mL 30mL UDC PO SCH ×2 (16:24→16:27)
[2016-06-16] MEDS: Multivitamin Tab PO SCH (16:24)
[2016-06-16] MEDS: Pantoprazole 40 mg EC Tab PO SCH (16:24)
[2016-06-16] MEDS: POLYETHYLENE GLYCOL 3350 17 GM PACK PO SCH (16:25)
[2016-06-17] MEDS: Meropenem 1 gm in NS 0.9% 100 ML IV SCH ×3 (00:05→15:49)
[2016-06-17] MEDS: Hydrocodone/APAP 5mg/325mg Tab PO PRN ×5 (00:54→22:59)
[2016-06-17] MEDS: metroNIDAZOLE 500mg/NS 100mL 500 MG/100 ML BAG IV SCH ×3 (04:40→22:46)
[2016-06-17] MEDS: Multivitamin Tab PO SCH (08:42)
[2016-06-17] MEDS: Pantoprazole 40 mg EC Tab PO SCH (08:42)
[2016-06-17] MEDS: Lactulose 10 Gm/15 mL 30mL UDC PO SCH (08:43)
[2016-06-17] MEDS: POLYETHYLENE GLYCOL 3350 17 GM PACK PO SCH (08:43)
[2016-06-17] MEDS ORDERED: Pantoprazole 40 mg EC Tab PO SCH (09:00)
[2016-06-17] MEDS ORDERED: Lactulose 10 Gm/15 mL 30mL UDC PO SCH (09:00)
[2016-06-17] MEDS ORDERED: Multivitamin Tab PO SCH (09:00)
[2016-06-17] MEDS ORDERED: POLYETHYLENE GLYCOL 3350 17 GM PACK PO SCH (09:00)
--- NOTE | 2016-06-17 10:31 | General Progress Note ---
Subjective - Review of Systems Service Date: 06/17/16 Subjective: s: no new sx Objective - Results Result Diagrams: 06/15/16 05:25 06/15/16 05:15 Recent Labs: Laboratory Last Values WBC 11.7 Th/cmm (4.8-10.8) H D 06/15/16 05:15 RBC 3.53 Mil/cmm (3.80-5.10) L 06/15/16 05:15 Hgb 9.2 gm/dL (11.7-15.5) L 06/15/16 05:15 Hct 27.3 % (33.0-45.0) L 06/15/16 05:25 MCV 77.5 fl (81-100) L 06/15/16 05:15 MCH 26.1 pg (27.0-31.0) L 06/15/16 05:15 MCHC Differential 33.7 pg (28.0-36.0) 06/15/16 05:15 RDW 15.7 % (11.5-20.0) 06/15/16 05:15 Plt Count 444 Th/cmm (150-400) H 06/15/16 05:15 MPV 8.5 fl 06/15/16 05:15 Neutrophils % 74.4 % (40.0-80.0) 06/15/16 05:15 Band Neutrophils % 1 % (0-10) 06/13/16 13:00 Lymphocytes % 10.7 % (20.0-50.0) L 06/15/16 05:15 Monocytes % 10.3 % (2.0-10.0) H 06/15/16 05:15 Eosinophils % 0.9 % (0.0-5.0) 06/15/16 05:15 Basophils % 3.7 % (0.0-2.0) H 06/15/16 05:15 Neutrophils (Manual) 65 % (40-80) 06/13/16 13:00 Lymphocytes 22 % (20-50) 06/13/16 13:00 Monocytes 10 % (2-10) 06/13/16 13:00 Eosinophils 1 % (0-5) 06/13/16 13:00 Basophils 1 % (0-3) 06/13/16 13:00 Metamyelocytes 2 % (0-0) H 06/12/16 09:10 Atypical Lymphocytes 1 % 06/12/16 09:10 Hypochromia 1+ 06/09/16 17:33 Platelet Estimate ADEQUATE (NORMAL) 06/13/16 13:00 Platelet Morphology NORMAL (NORMAL) 06/13/16 13:00 Anisocytosis 1+ 06/13/16 13:00 Microcytosis 1+ 06/13/16 13:00 RBC Morph Micro Appear ABNORMAL (NORMAL) 06/13/16 13:00 Smear Path Review 06/11/16 06:44 Total Retics Counted 4.5 % (0.5-1.5) H 06/15/16 05:25 Absolute Retic 158.9 Th/cmm 06/15/16 05:25 Corrected Retic Count 2.7 % (0.5-1.5) H 06/15/16 05:25 PT 11.2 SECONDS (9.5-11.5) 06/15/16 05:15 INR 1.12 (0.5-1.4) 06/15/16 05:15 PTT (Actin FS) 26.4 SECONDS (26.0-38.0) 06/15/16 05:15 Sodium 134 mEq/L (136-145) L 06/15/16 05:15 Potassium 3.5 mEq/L (3.5-5.1) 06/15/16 05:15 Chloride 104 mEq/L (98-107) 06/15/16 05:15 Carbon Dioxide 25.1 mEq/L (21.0-31.0) 06/15/16 05:15 Anion Gap 8.4 (7.0-16.0) 06/15/16 05:15 BUN 7 mg/dL (7-25) 06/15/16 05:15 Creatinine 0.5 mg/dL (0.6-1.2) L 06/15/16 05:15 Est GFR ( Amer) > 60.0 ml/min (>90) 06/15/16 05:15 Est GFR (Non-Af Amer) > 60.0 ml/min 06/15/16 05:15 BUN/Creatinine Ratio 14.0 06/15/16 05:15 Glucose 109 mg/dL (70-105) H 06/15/16 05:15 POC Glucose 124 MG/DL (70 - 105) H 06/15/16 06:47 Whole Bld Lactic Acid 1.64 mmol/L (0.60-2.00) 06/09/16 17:33 Calcium 8.4 mg/dL (8.6-10.3) L 06/15/16 05:15 Ferritin 46 ng/mL (15-150) 06/15/16 05:15 Total Bilirubin 0.4 mg/dL (0.3-1.0) 06/13/16 13:00 AST 14 U/L (13-39) 06/13/16 13:00 ALT 12 U/L (7-52) 06/13/16 13:00 Alkaline Phosphatase 83 U/L (34-104) 06/13/16 13:00 Ammonia 50 umol/L (16-53) 06/09/16 17:33 Total Protein 5.8 gm/dL (6.0-8.3) L 06/13/16 13:00 Albumin 2.7 gm/dL (3.7-5.3) L 06/13/16 13:00 Globulin 3.1 gm/dL 06/13/16 13:00 Albumin/Globulin Ratio 0.9 (1.0-1.8) L 06/13/16 13:00 Amylase 101 U/L (29-103) 06/09/16 17:33 Lipase 29 U/L (11-82) 06/11/16 06:44 Vitamin B12 >1999 pg/mL (211-946) H 06/15/16 05:15 Folic Acid >20.0 ng/mL (>3.0) 06/15/16 05:15 Urine Source CLEAN C 06/12/16 11:50 Urine Color BROWN 06/12/16 11:50 Urine Clarity SL. CLOUDY (CLEAR) 06/12/16 11:50 Urine pH 6.0 06/12/16 11:50 Ur Specific [place] (1.005-1.030) 06/12/16 11:50 Urine Protein NEGATIVE mg/dL (NEGATIVE) 06/12/16 11:50 Urine Glucose (UA) NEGATIVE mg/dL (NEGATIVE) 06/12/16 11:50 Urine Ketones NEGATIVE mg/dL (NEGATIVE) 06/12/16 11:50 Urine Blood NEGATIVE (NEGATIVE) 06/12/16 11:50 Urine Nitrate NEGATIVE (NEGATIVE) 06/12/16 11:50 Urine Bilirubin NEGATIVE (NEGATIVE) 06/12/16 11:50 Urine Urobilinogen 0.2 E.U./dL (0.2 - 1.0) 06/12/16 11:50 Ur Leukocyte Esterase NEGATIVE (NEGATIVE) 06/12/16 11:50 Urine RBC 0-1 /hpf (0-5) 06/12/16 11:50 Urine WBC NONE SEEN /hpf (0-5) 06/12/16 11:50 Ur Epithelial Cells FEW /lpf (FEW) 06/12/16 11:50 Urine Bacteria NONE SEEN /hpf (NONE SEEN) 06/12/16 11:50 Stool Leukocyte FEW WBC SEEN 06/15/16 13:00 Vancomycin Trough 16.1 ug/mL (10-20) 06/15/16 05:15 Helicobacter pylori Ab NEGATIVE (NEGATIVE) 06/15/16 13:00 - Physical Exam Vitals and I&O: Vital Signs Temp 98.4 F 06/17/16 08:15 Pulse 85 06/17/16 08:42 Resp 18 06/17/16 08:15 BP 115/66 06/17/16 08:43 Pulse Ox 98 06/17/16 08:15 Intake & Output 06/16/16 06/17/16 06/17/16 18:59 06:59 18:59 Intake Total 550 1370 Balance 550 1370 Intake: Intake, IV Amount 550 550 Meropenem 1 gm In Sodium 200 100 Chloride 0.9% 100 ml @ 100 mls/hr IV Q8H [facility] Rx# :[id number] Vancomycin HCl 1 gm In 250 250 Sodium Chloride 0.9% 250 ml @ 165 mls/hr IV Q12H [facility] Rx#:[id number] metroNIDAZOLE 500mg/NS 100 200 100mL 500 mg In 100 ml @ 100 mls/hr IV Q8HR [facility] Rx #:[id number] Oral 820 Other: # Voids 3 # Bowel Movements 0 Active Medications: Current Medications Acetaminophen/Hydrocodone Bitart ([place] 5mg/325mg) 1 tab PO Q4H PRN PRN Reason: Pain (Moderate) Stop: 08/14/16 21:29 Last Admin: 06/17/16 08:53 Dose: 1 tab Benazepril HCl (Lotensin) 10 mg PO DAILY [facility] Stop: 08/15/16 15:59 Last Admin: 06/17/16 08:42 Dose: 10 mg Furosemide (Lasix) 20 mg PO DAILY [facility] Stop: 08/15/16 15:59 Last Admin: 06/17/16 08:43 Dose: 20 mg Heparin Sodium (Porcine) (Heparin) 5,000 units SUBQ Q12HR [facility] Stop: 08/14/16 20:59 Last Admin: 06/17/16 08:48 Dose: 5,000 units Metronidazole (Flagyl) 500 mg in 100 mls @ 100 mls/hr IV Q8HR [facility] Stop: 08/09/16 04:59 Last Infusion: 06/17/16 05:40 Dose: Infused Meropenem 1 gm/ Sodium (Chloride) 100 mls @ 100 mls/hr IV Q8H [facility] Stop: 08/10/16 15:59 Last Admin: 06/17/16 08:44 Dose: 100 mls/hr Vancomycin HCl 1 gm/ Sodium (Chloride) 250 mls @ 165 mls/hr IV Q12H [facility] Stop: 08/12/16 19:59 Last Infusion: 06/16/16 22:40 Dose: Infused Lactulose (Cephulac) 20 gm PO DAILY [facility] Stop: 08/15/16 15:59 Last Admin: 06/17/16 08:43 Dose: 20 gm Mineral Oil (Mineral Oil 30 Ml) 30 ml PO DAILY PRN PRN Reason: Constipation Stop: 08/15/16 15:54 Miscellaneous (Vte Chemical Prophylaxis Screen/ Admission) 1 [facility] PRN PRN PRN Reason: PROTOCOL Stop: 08/09/16 14:59 Miscellaneous (Vancomycin Iv Per Pharmacy) 1 [facility] PRN [facility] Stop: 08/10/16 12:14 Multivitamins/Vitamin C (Theragran) 1 tab PO DAILY [facility] Stop: 08/15/16 15:59 Last Admin: 06/17/16 08:42 Dose: 1 tab Ondansetron HCl (Zofran) 4 mg IV Q6HR PRN PRN Reason: Nausea / Vomiting Stop: 08/15/16 15:55 Pantoprazole Sodium (Protonix) 40 mg PO DAILY [facility] Stop: 08/15/16 15:59 Last Admin: 06/17/16 08:42 Dose: 40 mg Polyethylene Glycol (Miralax) 17 gm PO DAILY [facility] Stop: 08/15/16 15:59 Last Admin: 06/17/16 08:43 Dose: Not Given Rifaximin (Xifaxan) 600 mg PO BID [facility] Stop: 08/15/16 16:59 Last Admin: 06/17/16 08:42 Dose: 600 mg General: Alert HEENT: Atraumatic, PERRLA Neck: Supple Cardiovascular: Regular rate, Normal S1, Normal S2 Lungs: Clear to auscultation Abdomen: Bowel sounds, Soft Neurological: Normal gait Psych/Mental Status: Mental status NL - Procedures Procedures: Procedures Procedure Code Date COLONOSCOPY AND BIOPSY 68419 06/09/16 EGD BIOPSY SINGLE/MULTIPLE 89653 06/09/16 EXCISION OF DESCENDING COLON, ENDO, DIAGN [id number] 06/09/16 EXCISION OF STOMACH, ENDO, DIAGN [id number] 06/09/16 Assessment/Plan - Problem List Patient Problems: All Active Problems LOWER ABDOMINAL PAIN AFTER STRAINING (Acute) - Assessment Assessment: hepC cirrhosis, ch pain - Plan Plan: fu as needed
--- NOTE | 2016-06-17 15:07 | Infectious Disease Prog Note ---
Infectious Disease Subjective - Review of Systems Service Date: 06/17/16 Subjective: cc hep c hpi- pt wbc decreased on iv bax d/c paln in progress ro sno fveer o/e Physical Exam: General: Alert and Oriented x3, No Acute Distress HEENT: EOMI Bilaterally, PERRLA Bilaterally, Head is normocephalic, atraumatic on inspection. Cardio: +S1/S2 Auscultated, RRR, no murmurs/rubs/gallops noted Respiratory: Clear to Auscultate Bilaterally Abdominal: Soft, Nondistended, Nontender to palpation x 4 quadrants Genital/Urinary: Extremities: Edema noted in the lower extremities Neurological: Cranial Nerves II-XII intact bilaterally, Gait Steady, paraplegia Infectious Disease Objective - Results Result Diagrams: 06/15/16 05:25 06/15/16 05:15 Recent Labs: Laboratory Last Values WBC 11.7 Th/cmm (4.8-10.8) H D 06/15/16 05:15 RBC 3.53 Mil/cmm (3.80-5.10) L 06/15/16 05:15 Hgb 9.2 gm/dL (11.7-15.5) L 06/15/16 05:15 Hct 27.3 % (33.0-45.0) L 06/15/16 05:25 MCV 77.5 fl (81-100) L 06/15/16 05:15 MCH 26.1 pg (27.0-31.0) L 06/15/16 05:15 MCHC Differential 33.7 pg (28.0-36.0) 06/15/16 05:15 RDW 15.7 % (11.5-20.0) 06/15/16 05:15 Plt Count 444 Th/cmm (150-400) H 06/15/16 05:15 MPV 8.5 fl 06/15/16 05:15 Neutrophils % 74.4 % (40.0-80.0) 06/15/16 05:15 Band Neutrophils % 1 % (0-10) 06/13/16 13:00 Lymphocytes % 10.7 % (20.0-50.0) L 06/15/16 05:15 Monocytes % 10.3 % (2.0-10.0) H 06/15/16 05:15 Eosinophils % 0.9 % (0.0-5.0) 06/15/16 05:15 Basophils % 3.7 % (0.0-2.0) H 06/15/16 05:15 Neutrophils (Manual) 65 % (40-80) 06/13/16 13:00 Lymphocytes 22 % (20-50) 06/13/16 13:00 Monocytes 10 % (2-10) 06/13/16 13:00 Eosinophils 1 % (0-5) 06/13/16 13:00 Basophils 1 % (0-3) 06/13/16 13:00 Metamyelocytes 2 % (0-0) H 06/12/16 09:10 Atypical Lymphocytes 1 % 06/12/16 09:10 Hypochromia 1+ 06/09/16 17:33 Platelet Estimate ADEQUATE (NORMAL) 06/13/16 13:00 Platelet Morphology NORMAL (NORMAL) 06/13/16 13:00 Anisocytosis 1+ 06/13/16 13:00 Microcytosis 1+ 06/13/16 13:00 RBC Morph Micro Appear ABNORMAL (NORMAL) 06/13/16 13:00 Smear Path Review 06/11/16 06:44 Total Retics Counted 4.5 % (0.5-1.5) H 06/15/16 05:25 Absolute Retic 158.9 Th/cmm 06/15/16 05:25 Corrected Retic Count 2.7 % (0.5-1.5) H 06/15/16 05:25 PT 11.2 SECONDS (9.5-11.5) 06/15/16 05:15 INR 1.12 (0.5-1.4) 06/15/16 05:15 PTT (Actin FS) 26.4 SECONDS (26.0-38.0) 06/15/16 05:15 Sodium 134 mEq/L (136-145) L 06/15/16 05:15 Potassium 3.5 mEq/L (3.5-5.1) 06/15/16 05:15 Chloride 104 mEq/L (98-107) 06/15/16 05:15 Carbon Dioxide 25.1 mEq/L (21.0-31.0) 06/15/16 05:15 Anion Gap 8.4 (7.0-16.0) 06/15/16 05:15 BUN 7 mg/dL (7-25) 06/15/16 05:15 Creatinine 0.5 mg/dL (0.6-1.2) L 06/15/16 05:15 Est GFR ( Amer) > 60.0 ml/min (>90) 06/15/16 05:15 Est GFR (Non-Af Amer) > 60.0 ml/min 06/15/16 05:15 BUN/Creatinine Ratio 14.0 06/15/16 05:15 Glucose 109 mg/dL (70-105) H 06/15/16 05:15 POC Glucose 124 MG/DL (70 - 105) H 06/15/16 06:47 Whole Bld Lactic Acid 1.64 mmol/L (0.60-2.00) 06/09/16 17:33 Calcium 8.4 mg/dL (8.6-10.3) L 06/15/16 05:15 Ferritin 46 ng/mL (15-150) 06/15/16 05:15 Total Bilirubin 0.4 mg/dL (0.3-1.0) 06/13/16 13:00 AST 14 U/L (13-39) 06/13/16 13:00 ALT 12 U/L (7-52) 06/13/16 13:00 Alkaline Phosphatase 83 U/L (34-104) 06/13/16 13:00 Ammonia 50 umol/L (16-53) 06/09/16 17:33 Total Protein 5.8 gm/dL (6.0-8.3) L 06/13/16 13:00 Albumin 2.7 gm/dL (3.7-5.3) L 06/13/16 13:00 Globulin 3.1 gm/dL 06/13/16 13:00 Albumin/Globulin Ratio 0.9 (1.0-1.8) L 06/13/16 13:00 Amylase 101 U/L (29-103) 06/09/16 17:33 Lipase 29 U/L (11-82) 06/11/16 06:44 Vitamin B12 >1999 pg/mL (211-946) H 06/15/16 05:15 Folic Acid >20.0 ng/mL (>3.0) 06/15/16 05:15 Urine Source CLEAN C 06/12/16 11:50 Urine Color BROWN 06/12/16 11:50 Urine Clarity SL. CLOUDY (CLEAR) 06/12/16 11:50 Urine pH 6.0 06/12/16 11:50 Ur Specific [place] (1.005-1.030) 06/12/16 11:50 Urine Protein NEGATIVE mg/dL (NEGATIVE) 06/12/16 11:50 Urine Glucose (UA) NEGATIVE mg/dL (NEGATIVE) 06/12/16 11:50 Urine Ketones NEGATIVE mg/dL (NEGATIVE) 06/12/16 11:50 Urine Blood NEGATIVE (NEGATIVE) 06/12/16 11:50 Urine Nitrate NEGATIVE (NEGATIVE) 06/12/16 11:50 Urine Bilirubin NEGATIVE (NEGATIVE) 06/12/16 11:50 Urine Urobilinogen 0.2 E.U./dL (0.2 - 1.0) 06/12/16 11:50 Ur Leukocyte Esterase NEGATIVE (NEGATIVE) 06/12/16 11:50 Urine RBC 0-1 /hpf (0-5) 06/12/16 11:50 Urine WBC NONE SEEN /hpf (0-5) 06/12/16 11:50 Ur Epithelial Cells FEW /lpf (FEW) 06/12/16 11:50 Urine Bacteria NONE SEEN /hpf (NONE SEEN) 06/12/16 11:50 Stool Leukocyte FEW WBC SEEN 06/15/16 13:00 Vancomycin Trough 16.1 ug/mL (10-20) 06/15/16 05:15 Helicobacter pylori Ab NEGATIVE (NEGATIVE) 06/15/16 13:00 - Physical Exam Vitals and I&O: Vital Signs Temp 97.9 F 06/17/16 12:15 Pulse 105 06/17/16 12:15 Resp 18 06/17/16 12:15 BP 134/84 06/17/16 12:15 Pulse Ox 98 06/17/16 12:15 Intake & Output 06/16/16 06/17/16 06/17/16 18:59 06:59 18:59 Intake Total 550 1370 Balance 550 1370 Intake: Intake, IV Amount 550 550 Meropenem 1 gm In Sodium 200 100 Chloride 0.9% 100 ml @ 100 mls/hr IV Q8H [facility] Rx# :[id number] Vancomycin HCl 1 gm In 250 250 Sodium Chloride 0.9% 250 ml @ 165 mls/hr IV Q12H [facility] Rx#:[id number] metroNIDAZOLE 500mg/NS 100 200 100mL 500 mg In 100 ml @ 100 mls/hr IV Q8HR [facility] Rx #:[id number] Oral 820 Other: # Voids 3 # Bowel Movements 0 Active Medications: Current Medications Acetaminophen/Hydrocodone Bitart ([place] 5mg/325mg) 1 tab PO Q4H PRN PRN Reason: Pain (Moderate) Stop: 08/14/16 21:29 Last Admin: 06/17/16 13:46 Dose: 1 tab Benazepril HCl (Lotensin) 10 mg PO DAILY [facility] Stop: 08/15/16 15:59 Last Admin: 06/17/16 08:42 Dose: 10 mg Furosemide (Lasix) 20 mg PO DAILY [facility] Stop: 08/15/16 15:59 Last Admin: 06/17/16 08:43 Dose: 20 mg Heparin Sodium (Porcine) (Heparin) 5,000 units SUBQ Q12HR [facility] Stop: 08/14/16 20:59 Last Admin: 06/17/16 08:48 Dose: 5,000 units Metronidazole (Flagyl) 500 mg in 100 mls @ 100 mls/hr IV Q8HR [facility] Stop: 08/09/16 04:59 Last Admin: 06/17/16 14:02 Dose: 100 mls/hr Meropenem 1 gm/ Sodium (Chloride) 100 mls @ 100 mls/hr IV Q8H [facility] Stop: 08/10/16 15:59 Last Admin: 06/17/16 08:44 Dose: 100 mls/hr Vancomycin HCl 1 gm/ Sodium (Chloride) 250 mls @ 165 mls/hr IV Q12H [facility] Stop: 08/12/16 19:59 Last Admin: 06/17/16 11:42 Dose: 165 mls/hr Lactulose (Cephulac) 20 gm PO DAILY [facility] Stop: 08/15/16 15:59 Last Admin: 06/17/16 08:43 Dose: 20 gm Mineral Oil (Mineral Oil 30 Ml) 30 ml PO DAILY PRN PRN Reason: Constipation Stop: 08/15/16 15:54 Miscellaneous ([employer] Prophylaxis Screen/ Admission) 1 ea PRN PRN PRN Reason: PROTOCOL Stop: 08/09/16 14:59 Miscellaneous (Vancomycin Iv Per Pharmacy) 1 ea PRN [facility] Stop: 08/10/16 12:14 Multivitamins/Vitamin C (Theragran) 1 tab PO DAILY [facility] Stop: 08/15/16 15:59 Last Admin: 06/17/16 08:42 Dose: 1 tab Ondansetron HCl (Zofran) 4 mg IV Q6HR PRN PRN Reason: Nausea / Vomiting Stop: 08/15/16 15:55 Pantoprazole Sodium (Protonix) 40 mg PO DAILY [facility] Stop: 08/15/16 15:59 Last Admin: 06/17/16 08:42 Dose: 40 mg Polyethylene Glycol (Miralax) 17 gm PO DAILY [facility] Stop: 08/15/16 15:59 Last Admin: 06/17/16 08:43 Dose: Not Given Rifaximin (Xifaxan) 600 mg PO BID [facility] Stop: 08/15/16 16:59 Last Admin: 06/17/16 08:42 Dose: 600 mg - Procedures Procedures: Procedures Procedure Code Date COLONOSCOPY AND BIOPSY 88508 06/09/16 EGD BIOPSY SINGLE/MULTIPLE 61708 06/09/16 EXCISION OF DESCENDING COLON, ENDO, DIAGN [id number] 06/09/16 EXCISION OF STOMACH, ENDO, DIAGN [id number] 06/09/16 Infectious Disease Assmt/Plan - Problem List Patient Problems: All Active Problems LOWER ABDOMINAL PAIN AFTER STRAINING (Acute) - Assessment Assessment: hep c cirhosis colitis depresion
[2016-06-18] MEDS: Meropenem 1 gm in NS 0.9% 100 ML IV SCH ×3 (01:05→16:47)
[2016-06-18] MEDS: Hydrocodone/APAP 5mg/325mg Tab PO PRN ×4 (03:26→16:51)
[2016-06-18] MEDS: metroNIDAZOLE 500mg/NS 100mL 500 MG/100 ML BAG IV SCH ×2 (05:05→12:30)
[2016-06-18] MEDS: Lactulose 10 Gm/15 mL 30mL UDC PO SCH (08:34)
[2016-06-18] MEDS: Pantoprazole 40 mg EC Tab PO SCH (08:35)
[2016-06-18] MEDS: POLYETHYLENE GLYCOL 3350 17 GM PACK PO SCH (08:35)
[2016-06-18] MEDS: Multivitamin Tab PO SCH (08:35)
--- NOTE | 2016-06-18 13:00 | Diagnostic Imaging Report ---
Right tibia/fibula (2 views) HISTORY: Pain No focal bony lesions. No fractures. No evidence of osteomyelitis. Faint vascular calcification noted. IMPRESSION: 1. No acute or focal bony abnormalities 2. Faint vascular calcification
--- NOTE | 2016-06-18 13:12 | Diagnostic Imaging Report ---
Right femur (2 views) HISTORY: Pain No focal bony lesions are no fractures. No radiographic evidence of osteomyelitis. IMPRESSION: Negative examination
--- NOTE | 2016-06-18 15:15 | Pathology Report ---
[id number] Collection date: 06/15/2016 Surgeon: Dr. Erasto Armenta Specimen Description: 1. Duodenum biopsy. 2. Antrum biopsy. 3. Descending colon biopsy. Gross Description: Part I: Received in formalin is a single urbina soft tissue fragment measuring 0.2 cm in greatest dimension. Totally submitted in one cassette labeled A. Gross Description: Part II: Received in formalin are two urbina soft tissue fragments measuring 0.1 and 0.2 cm in greatest dimension. Totally submitted in one cassette labeled B. Gross Description: Part III: Received in formalin are three urbina soft tissue fragments ranging from 0.1 to 0.2 cm in greatest dimension. Totally submitted in one cassette labeled C. Microscopic Description: Part I: The histologic sections show duodenal mucosa with intact intestinal villi, showing no significant abnormalities. Diagnosis: Part I: No evidence for celiac disease/Sprue (duodenum biopsy). Microscopic Description: Part II: The histologic sections show gastric mucosa with chronic inflammation present, consisting of lymphocytes and plasma cells. The Giemsa stain shows no evidence for Helicobacter pylori. Diagnosis: Part II: 1. Chronic gastritis, antrum biopsy. 2. The Giemsa stain is negative for Helicobacter pylori. Microscopic Description: Part III: The histologic sections show partially ulcerated colon mucosa with areas of hemorrhagic and fibrinous necrosis and associated acute and chronic inflammation, consisting of increased numbers of neutrophils admixed with lymphocytes. There is no evidence for crypt abscess or any structural glandular abnormalities. There is also no evidence for atypia. Diagnosis: Part III: 1. Ulcerated colon mucosa showing acute and chronic colitis (descending colon biopsy). 2. Areas of hemorrhagic/fibrinous necrosis are appreciated, which is highly suggestive for ischemic colitis. Comment: These findings are discussed with Dr. Erasto Armenta on 06/18/16, and the report is also sent to his office. JOB# [id number] [facility]
--- NOTE | 2016-06-18 16:47 | General Progress Note ---
Subjective - Review of Systems Service Date: 06/18/16 Subjective: s: no new sx Objective - Results Result Diagrams: 06/15/16 05:25 06/15/16 05:15 Recent Labs: Laboratory Last Values WBC 11.7 Th/cmm (4.8-10.8) H D 06/15/16 05:15 RBC 3.53 Mil/cmm (3.80-5.10) L 06/15/16 05:15 Hgb 9.2 gm/dL (11.7-15.5) L 06/15/16 05:15 Hct 27.3 % (33.0-45.0) L 06/15/16 05:25 MCV 77.5 fl (81-100) L 06/15/16 05:15 MCH 26.1 pg (27.0-31.0) L 06/15/16 05:15 MCHC Differential 33.7 pg (28.0-36.0) 06/15/16 05:15 RDW 15.7 % (11.5-20.0) 06/15/16 05:15 Plt Count 444 Th/cmm (150-400) H 06/15/16 05:15 MPV 8.5 fl 06/15/16 05:15 Neutrophils % 74.4 % (40.0-80.0) 06/15/16 05:15 Band Neutrophils % 1 % (0-10) 06/13/16 13:00 Lymphocytes % 10.7 % (20.0-50.0) L 06/15/16 05:15 Monocytes % 10.3 % (2.0-10.0) H 06/15/16 05:15 Eosinophils % 0.9 % (0.0-5.0) 06/15/16 05:15 Basophils % 3.7 % (0.0-2.0) H 06/15/16 05:15 Neutrophils (Manual) 65 % (40-80) 06/13/16 13:00 Lymphocytes 22 % (20-50) 06/13/16 13:00 Monocytes 10 % (2-10) 06/13/16 13:00 Eosinophils 1 % (0-5) 06/13/16 13:00 Basophils 1 % (0-3) 06/13/16 13:00 Metamyelocytes 2 % (0-0) H 06/12/16 09:10 Atypical Lymphocytes 1 % 06/12/16 09:10 Hypochromia 1+ 06/09/16 17:33 Platelet Estimate ADEQUATE (NORMAL) 06/13/16 13:00 Platelet Morphology NORMAL (NORMAL) 06/13/16 13:00 Anisocytosis 1+ 06/13/16 13:00 Microcytosis 1+ 06/13/16 13:00 RBC Morph Micro Appear ABNORMAL (NORMAL) 06/13/16 13:00 Smear Path Review 06/11/16 06:44 Total Retics Counted 4.5 % (0.5-1.5) H 06/15/16 05:25 Absolute Retic 158.9 Th/cmm 06/15/16 05:25 Corrected Retic Count 2.7 % (0.5-1.5) H 06/15/16 05:25 PT 11.2 SECONDS (9.5-11.5) 06/15/16 05:15 INR 1.12 (0.5-1.4) 06/15/16 05:15 PTT (Actin FS) 26.4 SECONDS (26.0-38.0) 06/15/16 05:15 Sodium 134 mEq/L (136-145) L 06/15/16 05:15 Potassium 3.5 mEq/L (3.5-5.1) 06/15/16 05:15 Chloride 104 mEq/L (98-107) 06/15/16 05:15 Carbon Dioxide 25.1 mEq/L (21.0-31.0) 06/15/16 05:15 Anion Gap 8.4 (7.0-16.0) 06/15/16 05:15 BUN 7 mg/dL (7-25) 06/15/16 05:15 Creatinine 0.5 mg/dL (0.6-1.2) L 06/15/16 05:15 Est GFR ( Amer) > 60.0 ml/min (>90) 06/15/16 05:15 Est GFR (Non-Af Amer) > 60.0 ml/min 06/15/16 05:15 BUN/Creatinine Ratio 14.0 06/15/16 05:15 Glucose 109 mg/dL (70-105) H 06/15/16 05:15 POC Glucose 124 MG/DL (70 - 105) H 06/15/16 06:47 Whole Bld Lactic Acid 1.64 mmol/L (0.60-2.00) 06/09/16 17:33 Calcium 8.4 mg/dL (8.6-10.3) L 06/15/16 05:15 Ferritin 46 ng/mL (15-150) 06/15/16 05:15 Total Bilirubin 0.4 mg/dL (0.3-1.0) 06/13/16 13:00 AST 14 U/L (13-39) 06/13/16 13:00 ALT 12 U/L (7-52) 06/13/16 13:00 Alkaline Phosphatase 83 U/L (34-104) 06/13/16 13:00 Ammonia 50 umol/L (16-53) 06/09/16 17:33 Total Protein 5.8 gm/dL (6.0-8.3) L 06/13/16 13:00 Albumin 2.7 gm/dL (3.7-5.3) L 06/13/16 13:00 Globulin 3.1 gm/dL 06/13/16 13:00 Albumin/Globulin Ratio 0.9 (1.0-1.8) L 06/13/16 13:00 Amylase 101 U/L (29-103) 06/09/16 17:33 Lipase 29 U/L (11-82) 06/11/16 06:44 Vitamin B12 >1999 pg/mL (211-946) H 06/15/16 05:15 Folic Acid >20.0 ng/mL (>3.0) 06/15/16 05:15 Urine Source CLEAN C 06/12/16 11:50 Urine Color BROWN 06/12/16 11:50 Urine Clarity SL. CLOUDY (CLEAR) 06/12/16 11:50 Urine pH 6.0 06/12/16 11:50 Ur Specific Leslie (1.005-1.030) 06/12/16 11:50 Urine Protein NEGATIVE mg/dL (NEGATIVE) 06/12/16 11:50 Urine Glucose (UA) NEGATIVE mg/dL (NEGATIVE) 06/12/16 11:50 Urine Ketones NEGATIVE mg/dL (NEGATIVE) 06/12/16 11:50 Urine Blood NEGATIVE (NEGATIVE) 06/12/16 11:50 Urine Nitrate NEGATIVE (NEGATIVE) 06/12/16 11:50 Urine Bilirubin NEGATIVE (NEGATIVE) 06/12/16 11:50 Urine Urobilinogen 0.2 E.U./dL (0.2 - 1.0) 06/12/16 11:50 Ur Leukocyte Esterase NEGATIVE (NEGATIVE) 06/12/16 11:50 Urine RBC 0-1 /hpf (0-5) 06/12/16 11:50 Urine WBC NONE SEEN /hpf (0-5) 06/12/16 11:50 Ur Epithelial Cells FEW /lpf (FEW) 06/12/16 11:50 Urine Bacteria NONE SEEN /hpf (NONE SEEN) 06/12/16 11:50 Stool Leukocyte FEW WBC SEEN 06/15/16 13:00 Vancomycin Trough 16.1 ug/mL (10-20) 06/15/16 05:15 Helicobacter pylori Ab NEGATIVE (NEGATIVE) 06/15/16 13:00 - Physical Exam Vitals and I&O: Vital Signs Temp 96.5 F 06/18/16 12:00 Pulse 82 06/18/16 12:00 Resp 18 06/18/16 12:00 BP 93/67 06/18/16 12:00 Pulse Ox 99 06/18/16 08:00 Intake & Output 06/17/16 06/18/16 06/18/16 18:59 06:59 18:59 Intake Total 550 1170 350 Balance 550 1170 350 Intake: Intake, IV Amount 550 550 350 Meropenem 1 gm In Sodium 200 100 100 Chloride 0.9% 100 ml @ 100 mls/hr IV Q8H [facility] Rx# :[id number] Vancomycin HCl 1 gm In 250 250 250 Sodium Chloride 0.9% 250 ml @ 165 mls/hr IV Q12H [facility] Rx#:[id number] metroNIDAZOLE 500mg/NS 100 200 100mL 500 mg In 100 ml @ 100 mls/hr IV Q8HR [facility] Rx #:[id number] Oral 620 Other: # Voids 3 # Bowel Movements 1 Active Medications: Current Medications Acetaminophen/Hydrocodone Bitart (Mina 5mg/325mg) 1 tab PO Q4H PRN PRN Reason: Pain (Moderate) Stop: 08/14/16 21:29 Last Admin: 06/18/16 12:34 Dose: 1 tab Benazepril HCl (Lotensin) 10 mg PO DAILY [facility] Stop: 08/15/16 15:59 Last Admin: 06/18/16 08:36 Dose: 10 mg Furosemide (Lasix) 20 mg PO DAILY [facility] Stop: 08/15/16 15:59 Last Admin: 06/18/16 08:35 Dose: 20 mg Heparin Sodium (Porcine) (Heparin) 5,000 units SUBQ Q12HR [facility] Stop: 08/14/16 20:59 Last Admin: 06/18/16 08:36 Dose: 5,000 units Metronidazole (Flagyl) 500 mg in 100 mls @ 100 mls/hr IV Q8HR [facility] Stop: 08/09/16 04:59 Last Admin: 06/18/16 12:30 Dose: 100 mls/hr Meropenem 1 gm/ Sodium (Chloride) 100 mls @ 100 mls/hr IV Q8H [facility] Stop: 08/10/16 15:59 Last Infusion: 06/18/16 09:30 Dose: Infused Vancomycin HCl 1 gm/ Sodium (Chloride) 250 mls @ 165 mls/hr IV Q12H [facility] Stop: 08/12/16 19:59 Last Infusion: 06/18/16 11:32 Dose: Infused Lactulose (Cephulac) 20 gm PO DAILY [facility] Stop: 08/15/16 15:59 Last Admin: 06/18/16 08:34 Dose: 20 gm Mineral Oil (Mineral Oil 30 Ml) 30 ml PO DAILY PRN PRN Reason: Constipation Stop: 08/15/16 15:54 Miscellaneous (Vte Chemical Prophylaxis Screen/ Admission) 1 [facility] PRN PRN PRN Reason: PROTOCOL Stop: 08/09/16 14:59 Miscellaneous (Vancomycin Iv Per Pharmacy) 1 [facility] PRN [facility] Stop: 08/10/16 12:14 Multivitamins/Vitamin C (Theragran) 1 tab PO DAILY [facility] Stop: 08/15/16 15:59 Last Admin: 06/18/16 08:35 Dose: 1 tab Ondansetron HCl (Zofran) 4 mg IV Q6HR PRN PRN Reason: Nausea / Vomiting Stop: 08/15/16 15:55 Pantoprazole Sodium (Protonix) 40 mg PO DAILY [facility] Stop: 08/15/16 15:59 Last Admin: 06/18/16 08:35 Dose: 40 mg Polyethylene Glycol (Miralax) 17 gm PO DAILY [facility] Stop: 08/15/16 15:59 Last Admin: 06/18/16 08:35 Dose: 17 gm Rifaximin (Xifaxan) 600 mg PO BID [facility] Stop: 08/15/16 16:59 Last Admin: 06/18/16 08:34 Dose: 600 mg General: Alert HEENT: Atraumatic, EOMI Neck: Supple Cardiovascular: Normal S2 Lungs: Clear to auscultation Abdomen: Bowel sounds, Soft Neurological: Normal tone Psych/Mental Status: Mental status NL - Procedures Procedures: Procedures Procedure Code Date COLONOSCOPY AND BIOPSY 79936 06/09/16 EGD BIOPSY SINGLE/MULTIPLE 45398 06/09/16 EXCISION OF DESCENDING COLON, ENDO, DIAGN [id number] 06/09/16 EXCISION OF STOMACH, ENDO, DIAGN [id number] 06/09/16 Assessment/Plan - Problem List Patient Problems: All Active Problems LOWER ABDOMINAL PAIN AFTER STRAINING (Acute) - Assessment Assessment: hepC cirrhosis, ch pain - Plan Plan: fu as needed
--- NOTE | 2016-06-19 19:35 | Discharge Summary ---
ADMISSION DIAGNOSIS: Sepsis. DISCHARGE DIAGNOSES: 1. Sepsis, secondary to colitis. 2. Hepatitis C. 3. Cirrhosis. 4. Depression. HOSPITAL COURSE: The patient is a 61-year-old female who was found to have abdominal pain localized to the left side. The patient's white count on admission was 50,000 and the patient was admitted to the floor, seen by GI Surgery and Dr. Hawley. The patient was started on IV antibiotics. Workup shows colitis and was managed conservatively with the medication, IV fluid, pain control and transferred to [facility] for further treatment. At the time of transfer, the patient's labs are as follows: White count 11,000, hemoglobin 9 g, platelets 444. UA negative. H. pylori antibody negative. Vancomycin level 16. Creatinine 0.5. Blood culture remained negative. Urine culture negative. Stool culture negative. INSTRUCTION ON DISCHARGE: To continue same medication on transfer, follow up with same doctors, and PT/OT evaluation. Rest of the care as ordered in the computer. Discussed with Dr. Hawley. JOB# [id number]
== END 2016-06-18 19:05 | disposition short-term general hospital (02) | DRG 871 ==
LOC: ER 17:17 → MSI 20:00 → UNDODISIN 06-15 17:32 → MSI 06-17 07:33
PROVIDERS: ADMIT Internal Medicine Infectious Disease; ATTEND Internal Medicine Infectious Disease
PROC: 0DB68ZX Excision of Stomach, Via Natural or Artificial Opening Endoscopic, Diagnostic (ICD-10-PCS; principal; 2016-06-15)
PROC: 0DBM8ZX Excision of Descending Colon, Via Natural or Artificial Opening Endoscopic, Diagnostic (ICD-10-PCS; 2016-06-15)
PROC: 0DB98ZX Excision of Duodenum, Via Natural or Artificial Opening Endoscopic, Diagnostic (ICD-10-PCS; 2016-06-15)
DX: A41.9 Sepsis, unspecified organism (principal); K55.039 Acute (reversible) ischemia of large intestine, extent unspecified; N17.9 Acute kidney failure, unspecified; K63.3 Ulcer of intestine; K55.9 Vascular disorder of intestine, unspecified; N39.0 Urinary tract infection, site not specified; G82.20 Paraplegia, unspecified; K57.92 Diverticulitis of intestine, part unspecified, without perforation or abscess without bleeding; K74.60 Unspecified cirrhosis of liver; K58.1 Irritable bowel syndrome with constipation; I12.9 Hypertensive chronic kidney disease with stage 1 through stage 4 chronic kidney disease, or unspecified chronic kidney disease; N18.9 Chronic kidney disease, unspecified; I25.10 Atherosclerotic heart disease of native coronary artery without angina pectoris; B19.20 Unspecified viral hepatitis C without hepatic coma; M19.90 Unspecified osteoarthritis, unspecified site; D64.9 Anemia, unspecified; M81.0 Age-related osteoporosis without current pathological fracture; K59.00 Constipation, unspecified; G89.29 Other chronic pain; E66.9 Obesity, unspecified; K29.70 Gastritis, unspecified, without bleeding; K44.9 Diaphragmatic hernia without obstruction or gangrene; K64.8 Other hemorrhoids; Z88.0 Allergy status to penicillin; Z68.28 Body mass index [BMI] 28.0-28.9, adult; Z98.890 Other specified postprocedural states; Z90.49 Acquired absence of other specified parts of digestive tract; Z90.710 Acquired absence of both cervix and uterus
CPT/HCPCS: 36415-UA; 71010-TC; 73590-TC-RT; 74000-TC; 76700-TC; 80048-TC; 80053-TC; 80202-TC; 81001-TC; 82140-TC; 82150-TC; 82607-90; 82728-90; 82746-90; 82948-90; 83605; 83690-TC; 85007-TC; 85025-TC; 85027-TC; 85044-TC; 85610-TC; 85730-TC; 87046-90; 87086-90; 87209-90; 87338-TC; 88305-90; 88312-90; 89055-TC; 90799; 93005; 96375; J0744; J0780; J1644; J1885; J1956; J2185; J2405; J2704; J3370; J7030; J7040; J7042; Z7506; Z7610